=== PATIENT | male | born 1955 | race African-American/Black ===

== ENCOUNTER 2019-04-08 07:44 | Day surgery (SDC) | payer MEDICAID ==
[2019-04-08] MEDS ORDERED: PROPOFOL INJ 200 MG/20 ML VIAL IV ONE (07:59)
[2019-04-08 10:16] VITALS: BP 139/49
--- NOTE | 2019-04-08 10:22 | EKG REPORT ---
SEVERITY:- ABNORMAL ECG - ATRIAL-VENTRICULAR DUAL-PACED COMPLEXES : Confirmed by: Chang Laureano MD 08-Apr-2019 10:21:35
--- NOTE | 2019-04-08 12:06 | Operative Report ---
Operative Report DATE OF SURGERY: 04/08/19 Operative Report: The risks, benefits and alternatives of the procedure including the risk of bleeding, perforation requiring surgery have been explained to the patient in detail and informed consent has been obtained. Patient is taken back to the endoscopy suite and placed in the left, lateral decubital position. Timeout was called. Propofol medication is administered. Rectal examination is done which did not reveal any masses, tears or fissures. An Olympus videoscope was introduced into the patient's rectum. Scope was then carefully advanced all the way to the cecum. Cecum was identified by the usual anatomical landmarks including the ileocecal valve as well as the appendiceal office. Photodocumentation is obtained. Scope was then sequentially pulled back via the various segments of the colon including the ascending colon, hepatic flexure, transverse colon, splenic flexure, descending colon and into the rectosigmoid portions of the colon. Retroflexion maneuver is performed. PREOPERATIVE DIAGNOSIS: Colorectal cancer screening, change in bowel habits POSTOPERATIVE DIAGNOSIS: Mild right-sided colon inflammation status post biopsy. Internal hemorrhoids OPERATION: Colonoscopy with biopsy SURGEON: TURNER LOVE ANESTHESIA: LMAC TISSUE REMOVED OR ALTERED: As noted above. COMPLICATIONS: None. ESTIMATED BLOOD LOSS: None. INTRAOPERATIVE FINDINGS: As noted above. PROCEDURE: Patient tolerated the procedure well. No immediate postprocedure complications are noted. Patient is discharged in good condition. Discharge date 04/08/2019. Discharge diet: Regular. Discharge activity: Regular. 2 to 3-week follow-up to discuss findings. Patient is instructed to call the office or proceed to the emergency room should there be any further problems or questions. Wait on the pathology. If biopsies are negative consider a 10-year surveillance colonoscopy.
== END 2019-04-08 10:16 | disposition home or self-care (01) ==
LOC: END 07:44
PROVIDERS: ATTEND Internal Medicine Gastroenterology
DX: K52.9 Noninfective gastroenteritis and colitis, unspecified (principal); K64.8 Other hemorrhoids; I11.0 Hypertensive heart disease with heart failure; I50.22 Chronic systolic (congestive) heart failure; I73.9 Peripheral vascular disease, unspecified; I25.10 Atherosclerotic heart disease of native coronary artery without angina pectoris; I25.2 Old myocardial infarction
CPT/HCPCS: 45380; 88305 ×2; 93005; 93010; 00812; J2704; 812

== ENCOUNTER → 2019-04-11 | Outpatient (CLI) | payer MEDICAID ==
--- NOTE | 2019-04-11 13:35 | RADIOLOGY REPORT (SQ) ---
EXAM DESCRIPTION: U/S ABDOMEN COMPLETE W/DOPPLER COMPLETED DATE/TIME: 04/11/2019 10:58 am REASON FOR STUDY: R94.5 ABNORMAL RESULTS OF LIVER FUNCTION STUDIES R94.5 ABNORMAL RESULTS OF LIVER FUNCTION STUDIES COMPARISON: None. TECHNIQUE: Dynamic and static grayscale images acquired of the abdomen and recorded on PACS. Additio nal selected color Doppler and spectral images recorded. Note: Study does not meet criteria for complete doppler/duplex scan LIMITATIONS: None. FINDINGS: PANCREAS: Visualized portions of the pancreas are unremarkable. LIVER: No masses. Echotexture normal. LIVER VASCULATURE: Normal directional flow of the main portal vein and hepatic veins. GALLBLADDER: No stones. Normal wall thickness. No pericholecystic fluid. ULTRASOUND-DETECTED GUTIERREZ'S SIGN: Negative. INTRAHEPATIC DUCTS AND COMMON DUCT: CBD and intrahepatic ducts normal caliber. No filling defects. INFERIOR VENA CAVA: Normal flow. AORTA: No aneurysm. RIGHT KIDNEY: Normal size. Normal echogenicity. No solid or suspicious lesions. There are sever al cysts. The largest measures 2.7 x 2.0 x 3.2 cm. No hydronephrosis. No calcifications. LEFT KIDNEY: Normal size. Normal echogenicity. No solid or suspicious masses. No hydronephrosi s. No calcifications. SPLEEN: Normal size. No solid masses. PERITONEAL AND PLEURAL SPACES: No ascites or effusions. OTHER: No other significant finding. IMPRESSION: Right renal cysts. No other significant findings. TECHNICAL DOCUMENTATION: JOB ID: [id number] [employer]- All Rights Reserved Reading location - IP/workstation name: [email or web address]
== END ==
LOC: RAD 08:58 → MERGE 08:58
PROVIDERS: ATTEND Physician Assistant
DX: N28.1 Cyst of kidney, acquired (principal); R94.5 Abnormal results of liver function studies
CPT/HCPCS: 76700; 93976

== ENCOUNTER → 2019-06-10 | Day surgery (SDC) | payer MEDICAID ==
--- NOTE | 2019-06-10 16:09 | RADIOLOGY REPORT (SQ) ---
EXAM DESCRIPTION: ARTHRO SHOULDER INJECTION; FLUORO/NEEDLE PLACEMENT COMPLETED DATE/TIME: 06/10/2019 2:25 pm REASON FOR STUDY: M75.52 BURSITIS OF LEFT SHOULDER M75.52 BURSITIS OF LEFT SHOULDER COMPARISON: None. FLUOROSCOPY TIME: 22 seconds. 1 images saved to PACS. LIMITATIONS: None. PROCEDURE: Procedure, risks, benefits and alternative explained to patient who then gave written con sent. The left shoulder was marked and a time-out was called for correct marking verification. Post erior entry site marked using fluoroscopic guidance. Shoulder prepped and draped using sterile techn ique. Local anesthesia achieved using 1% lidocaine injection. 22 gauge spinal needle introduced into the joint space under direct fluoroscopic visualization. Non-ionic contrast instilled to confirm in tra-articular position. Additional dilute non-ionic contrast instilled. Needle removed and entry si te covered with sterile bandage. No immediate complications noted. TECHNIQUE: Digital images acquired during fluoroscopy and stored on PACS. Patient immediately take n to the CT suite for additional imaging. INJECTION LOCATION: Posterior left shoulder. CONTRAST TYPE AND AMOUNT: 10 mL dilute Omnipaque. IMPRESSION: SUCCESSFUL NEEDLE PLACEMENT AND INJECTION FOR LEFT SHOULDER CT ARTHROGRAM USING POSTERIO R APPROACH. COMMENT: Quality ID 145: Final reports for procedures using fluoroscopy that document radiation exp osure indices, or exposure time and number of fluorographic images (if radiation exposure indices are not available) TECHNICAL DOCUMENTATION: JOB ID: [id number] [employer] All Rights Reserved Reading location - IP/workstation name: [email or web address]
--- NOTE | 2019-06-10 20:42 | RADIOLOGY REPORT (SQ) ---
EXAM DESCRIPTION: CT LT UPPER EXTREMITY WITH COMPLETED DATE/TIME: 06/10/2019 1:04 pm REASON FOR STUDY: M75.52 BURSITIS OF LEFT SHOULDER M75.52 BURSITIS OF LEFT SHOULDER COMPARISON: None. TECHNIQUE: Axial imaging performed through the leftshoulder with reformatted oblique coronal and obl ique sagittal imaging windowed for bone and soft tissues. All CT scanners at this facility use dose modulation, iterative reconstruction, and/or weight based d osing when appropriate to reduce radiation dose to as low as reasonably achievable (ALARA). [facility]: Dose Right [facility]: CareDose [facility]: Dose Right [facility]: Teradose 4D [facility]: [employer] RADIATION DOSE: CT Rad equipment meets quality standard of care and radiation dose reduction techniq ues were employed. CTDIvol: 17.1 mGy. DLP: 481 mGy-cm. mGy. LIMITATIONS: None. FINDINGS: SOFT TISSUES: No lung lesions. No axillary adenopathy. Cardiomegaly. Pacer artifact. BONY ARCHITECTURE: No fracture or suspicious bone lesion. GLENOHUMERAL JOINT: Well distended with contrast. No focal chondral lesions are detected. ACROMION AND AC JOINT: Mild degenerative changes with slight dorsal overgrowth. No subacromial compr omise appreciated. ROTATOR CUFF: No evidence of overt cuff tear or muscular atrophy. GLENOID, LABRUM AND BICEPS: Labrum and long head biceps tendon look intact. OTHER: No other significant finding. IMPRESSION: 1. No suggestion of overt cuff tear. 2. Grossly intact labrum and biceps tendon. TECHNICAL DOCUMENTATION: JOB ID: [id number] Quality ID # [id number]: Final reports with documentation of one or more dose reduction techniques (e.g., Au tomated exposure control, adjustment of the mA and/or kV according to patient size, use of iterative reconstruction technique) 2010 [employer]- All Rights Reserved Reading location - IP/workstation name: [email or web address]
== END ==
LOC: RAD 12:01
PROVIDERS: ATTEND Orthopaedic Surgery
DX: M75.52 Bursitis of left shoulder (principal)
CPT/HCPCS: 23350; 77002

== ENCOUNTER 2019-08-20 05:50 | Emergency (ER) | payer MEDICAID ==
[2019-08-20] MEDS ORDERED: HYDROMORPHONE HCL INJ/PF 2 MG/ML AMPULE IM ONE (06:42)
--- NOTE | 2019-08-20 06:54 | ER Document Report ---
ED General - General Chief Complaint: Foot Pain Stated Complaint: PAIN IN LEFT FOOT Time Seen by Provider: 08/20/19 06:32 Primary Care Provider: AKIN NIELSEN DO [ACTIVE STAFF] - Follow up as needed TRAVEL OUTSIDE OF THE [place] IN LAST 30 DAYS: No - HPI Patient complains to provider of: left foot pain Notes: 63-year-old male presents with 10/10 left foot at the base of his left great toe. Denies any trauma to the foot. Denies fever chills cough. No obvious deformity. Patient was scheduled to see orthopedic surgeon this morning secondary to this pain and possible gout attacks. - Related Data Allergies/Adverse Reactions: lisinopril Adverse Reaction (Verified 08/20/19 05:56) Past Medical History - Social History Smoking Status: Former Smoker Chew tobacco use (# tins/day): No Frequency of alcohol use: None Drug Abuse: None Family History: None Patient has suicidal ideation: No Patient has homicidal ideation: No - Past Medical History Cardiac Medical History: Reports: Hx Congestive Heart Failure, Hx Coronary Artery Disease, Hx Heart Attack, Hx Hypercholesterolemia, Hx Hypertension, Hx Peripheral Vascular Disease Pulmonary Medical History: Denies: Hx Asthma, Hx Bronchitis, Hx COPD, Hx Pneumonia Neurological Medical History: Denies: Hx Cerebrovascular Accident, Hx Seizures Renal/ Medical History: Denies: Hx Peritoneal Dialysis Musculoskeletal Medical History: Reports Hx Arthritis Psychiatric Medical History: Reports: Hx Depression Past Surgical History: Reports: Hx Pacemaker - AICD Review of Systems - Review of Systems Notes: REVIEW OF SYSTEMS: CONSTITUTIONAL: -fevers, -chills EENT: -eye pain, -difficulty swallowing, -nasal congestion CARDIOVASCULAR: -chest pain, -syncope. RESPIRATORY: -cough, -SOB GASTROINTESTINAL: -abdominal pain, -nausea, -vomiting, -diarrhea GENITOURINARY: -dysuria, -hematuria MUSCULOSKELETAL: left foot pain SKIN: -rash or skin lesions. HEMATOLOGIC: -easy bruising or bleeding. LYMPHATIC: -swollen, enlarged glands. NEUROLOGICAL: -altered mental status or loss of consciousness, -headache, - neurologic symptoms PSYCHIATRIC: -anxiety, -depression. ALL OTHER SYSTEMS REVIEWED AND NEGATIVE. Physical Exam - Vital signs Vitals: Temp Pulse Resp BP Pulse Ox 97.1 F 58 L 26 H 127/63 H 100 08/20/19 05:55 08/20/19 05:55 08/20/19 05:55 08/20/19 05:55 08/20/19 05:55 - Notes Notes: PHYSICAL EXAMINATION: GENERAL: Well-appearing, well-nourished and in no acute distress. HEAD: Atraumatic, normocephalic. EYES: Pupils equal round and reactive to light, extraocular movements intact, sclera anicteric, conjunctiva are normal. ENT: nares patent, oropharynx clear without exudates. Moist mucous membranes. NECK: Normal range of motion, supple without lymphadenopathy LUNGS: Breath sounds clear to auscultation bilaterally and equal. No wheezes rales or rhonchi. HEART: Regular rate and rhythm without murmurs EXTREMITIES: warm at base of left great toe, very painful to palpation NEUROLOGICAL: Cranial nerves grossly intact. Normal speech, normal gait. Normal sensory and motor exams. PSYCH: Normal mood, normal affect. SKIN: Warm, Dry, normal turgor, no rashes or lesions noted. Course - Re-evaluation Re-evalutation: 08/20/19 06:54 Well-appearing 63-year-old male presents with a great deal of pain in his left foot indicative of possible gout. Will obtain imaging study and provide analgesia. 08/20/19 08:02 Merline study unremarkable. Patient given analgesia feeling markedly improved. W ill be discharged home with short course oral steroids follow-up orthopedics - Vital Signs Vital signs: Temp Pulse Resp BP Pulse Ox 97.1 F 58 L 26 H 127/63 H 100 08/20/19 05:55 08/20/19 05:55 08/20/19 05:55 08/20/19 05:55 08/20/19 05:55 Discharge - Discharge Clinical Impression: Gout Qualifiers: Gout site: foot Gout etiology: unspecified cause Chronicity: acute Laterality: left Qualified Code(s): M10.9 - Gout, unspecified Condition: Stable Disposition: HOME, SELF-CARE Instructions: Gout ([facility]) Prescriptions: Methylprednisolone [Medrol Dosepack (4 mg/Tab) 21 Tab/Dosepak] 4 mg PO ASDIR PRN #[id number] tab.ds.pk PRN Reason: Referrals: AKIN NIELSEN DO [ACTIVE STAFF] - Follow up as needed
--- NOTE | 2019-08-20 07:58 | RADIOLOGY REPORT (SQ) ---
Left foot three view on 08/20/2019 at 7:08 AM CLINICAL INDICATION: Left foot pain COMPARISON: None FINDINGS: There are no fractures. Visualized joints are well aligned. No bony abnormality is noted. IMPRESSION: No acute abnormality.
[2019-08-20 08:41] VITALS: BP 114/55
== END 2019-08-20 08:30 | disposition home or self-care (01) ==
LOC: ER 05:50
DX: M10.9 Gout, unspecified (principal); I25.10 Atherosclerotic heart disease of native coronary artery without angina pectoris; I10 Essential (primary) hypertension; Z87.891 Personal history of nicotine dependence
CPT/HCPCS: 99283; 96372; 73620; J1170

== ENCOUNTER 2020-04-21 21:10 | Emergency (ER) | payer MEDICAID ==
[2020-04-21] MEDS ORDERED: ACETAMINOPHEN 325 MG TABLET PO ONE (21:53)
--- NOTE | 2020-04-21 21:56 | ER Document Report ---
ED Medical Screen (RME) - General Chief Complaint: Fall Injury Stated Complaint: FALL/HEAD INJURY Time Seen by Provider: 04/21/20 21:47 Primary Care Provider: SUSSY CORTES PA-C [Primary Care Provider] - Follow up as needed Mode of Arrival: Wheelchair Information source: Patient, Friend Notes: HPI; 64-year-old male presents to the emergency room with significant other after sustaining a head injury earlier today. Patient states he lost his balance falling out of a chair and hitting his head on the floor. Patient denies any dizziness, chest pain, no shortness of breath or difficulty breathing. Friend states that happened around 4:30 PM they had dinner and then around 7:30 PM patient became confused and agitated and asked to go to the emergency room. Currently on any blood thinners. PE: Alert and oriented x3. Lungs: Clear to auscultation without rales, rhonchi, wheezes. Heart: Regular rate rhythm without murmurs, rubs, gallops. Patient is uncooperative with full examination of his head, face, and eyes. He does have tenderness to the right temporal region as well as the right cheek. I have greeted and performed a rapid initial assessment of this patient. A comprehensive ED assessment and evaluation of the patient, analysis of test results and completion of the medical decision making process will be conducted by additional ED providers. I have specifically instructed the patient or family members with the patient to immediately return to any nursing staff should anything change in the patient's condition or with their chief complaint. TRAVEL OUTSIDE OF THE [place] IN LAST 30 DAYS: No - Related Data Allergies/Adverse Reactions: lisinopril Adverse Reaction (Verified 04/21/20 21:46) Past Medical History - Past Medical History Cardiac Medical History: Reports: Hx Congestive Heart Failure, Hx Coronary Artery Disease, Hx Heart Attack, Hx Hypercholesterolemia, Hx Hypertension, Hx Peripheral Vascular Disease Pulmonary Medical History: Denies: Hx Asthma, Hx Bronchitis, Hx COPD, Hx Pneumonia Neurological Medical History: Denies: Hx Cerebrovascular Accident, Hx Seizures Renal/ Medical History: Denies: Hx Peritoneal Dialysis Musculoskeltal Medical History: Reports Hx Arthritis Psychiatric Medical History: Reports: Hx Depression Past Surgical History: Reports: Hx Pacemaker - AICD Physical Exam - Vital signs Vitals: Temp Pulse Resp BP Pulse Ox 98.4 F 50 L 16 133/66 H 98 04/21/20 21:16 04/21/20 21:16 04/21/20 21:16 04/21/20 21:16 04/21/20 21:16 Course - Vital Signs Vital signs: Temp Pulse Resp BP Pulse Ox 98.4 F 50 L 16 133/66 H 98 04/21/20 21:16 04/21/20 21:16 04/21/20 21:16 04/21/20 21:16 04/21/20 21:16 Doctor's Discharge - Discharge Referrals: SUSSY CORTES PA-C [Primary Care Provider] - Follow up as needed
--- NOTE | 2020-04-21 22:39 | RADIOLOGY REPORT (SQ) ---
CLINICAL HISTORY: head injury FALL FROM A CHAIR COMPARISON: None. 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 FINDINGS: There is no acute hemorrhage, mass effect or midline shift. Boyce-white differentiation is preserved. There is no hydrocephalus. There is no significant volume loss for age. The calvarium is intact. Orbits and globes are unremarkable. The paranasal sinuses are clear. Mastoid air cells are clear. IMPRESSION: No acute intracranial findings.
--- NOTE | 2020-04-21 22:39 | RADIOLOGY REPORT (SQ) ---
CLINICAL HISTORY: facial injury FALL FROM A CHAIR COMPARISON: None. 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 FINDINGS: There is no acute fracture. The paranasal sinuses are clear. Orbits and globes are unremarkable. Mastoid air cells are clear. Temporomandibular joints are intact. There are no significant soft tissue abnormalities. IMPRESSION: No post-traumatic findings.
--- NOTE | 2020-04-21 22:41 | RADIOLOGY REPORT (SQ) ---
CLINICAL HISTORY: FALL FROM A CHAIR COMPARISON: None. 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 FINDINGS: There is no acute fracture. Vertebral body heights are preserved. There is grade 1 anterolisthesis of C4 on C5. There is mild diffuse facet arthritis bilaterally. There is mild narrowing of the C5-6 disc with moderate narrowing at C6-7. Soft tissues are unremarkable. IMPRESSION: No acute fracture or subluxation.
--- NOTE | 2020-04-22 05:41 | ER Document Report ---
ED Head/Face/Scalp Injury - General Chief Complaint: Fall Stated Complaint: FALL/HEAD INJURY Time Seen by Provider: 04/21/20 21:47 Primary Care Provider: SUSSY CORTES PA-C [Primary Care Provider] - 04/24/20 Mode of Arrival: Wheelchair Notes: Patient is a 64-year-old male that comes to the emergency department for chief complaint of a head injury. Patient states he was changing a cord on a light fixture when he lost his balance on the ladder and fell several feet and hit his head on the floor on the right side of the head. Patient was not knocked out but he states that since that happened he has had intermittent headaches, trouble focusing, and worsening neck pain. He denies numbness in his arms or legs, incontinence, vomiting, visual changes. states that she first was not worried about him, he hit his head approximately 1630, she states that patient was complaining of a headache and he was having trouble answering her questions and seemed somewhat confused so she became concerned and brought him to the emergency department. He takes a baby aspirin daily but no other blood thinners. Past medical history of CAD, hypertension, hyperlipidemia. TRAVEL OUTSIDE OF THE [place] IN LAST 30 DAYS: No - Related Data Allergies/Adverse Reactions: lisinopril Adverse Reaction (Verified 04/21/20 21:46) Past Medical History - General Information source: Patient, Friend - Social History Smoking Status: Former Smoker Frequency of alcohol use: None Drug Abuse: None Lives with: Family Family History: None - Past Medical History Cardiac Medical History: Reports: Hx Congestive Heart Failure, Hx Coronary Artery Disease, Hx Heart Attack, Hx Hypercholesterolemia, Hx Hypertension, Hx Peripheral Vascular Disease Pulmonary Medical History: Denies: Hx Asthma, Hx Bronchitis, Hx COPD, Hx Pneumonia Neurological Medical History: Denies: Hx Cerebrovascular Accident, Hx Seizures Renal/ Medical History: Denies: Hx Peritoneal Dialysis Musculoskeletal Medical History: Reports Hx Arthritis Psychiatric Medical History: Reports: Hx Depression Past Surgical History: Reports: Hx Pacemaker - AICD Review of Systems - Review of Systems Constitutional: No symptoms reported EENT: No symptoms reported Cardiovascular: No symptoms reported Respiratory: No symptoms reported Gastrointestinal: No symptoms reported Genitourinary: No symptoms reported Male Genitourinary: No symptoms reported Musculoskeletal: See HPI Skin: No symptoms reported Hematologic/Lymphatic: No symptoms reported Neurological/Psychological: See HPI Physical Exam - Vital signs Vitals: Temp Pulse Resp BP Pulse Ox 98.4 F 50 L 16 133/66 H 98 04/21/20 21:16 04/21/20 21:16 04/21/20 21:16 04/21/20 21:16 04/21/20 21:16 - Notes Notes: GENERAL: Alert, interactive, moves stiffly and winces frequently with movement. HEAD: Normocephalic, atraumatic. EYES: Pupils equal, round, and reactive to light. Extraocular movements intact. ENT: Oral mucosa moist, tongue midline. Oropharynx unremarkable. Airway patent. Nares patent, sinuses non-tender, ear canals unremarkable, TM's intact. NECK: Full range of motion. Supple. Trachea midline. No lymphadenopathy. LUNGS: Clear to auscultation bilaterally, no wheezes, rales, or rhonchi. No respiratory distress. Non-tender chest wall. HEART: Regular rate and rhythm. No murmur ABDOMEN: Soft, non-tender. Non-distended. Bowel sounds present in all 4 quadrants. GENITOURINARY: Deferred EXTREMITIES: Moves all 4 extremities spontaneously. No edema, normal radial and dorsalis pedis pulses bilaterally. No cyanosis. BACK: Generalized tenderness over the cervical region although no overt specific tenderness or signs of trauma over the midline. Difficulty performing lateral range of motion, significant tenderness over the paracervical muscles noted. Remaining back exam is intact. Moves all extremities with full range of motion. Normal distal neurovascular exam. NEUROLOGICAL: Alert and oriented x3. Normal speech. Cranial nerves II through XII grossly intact. Strength 5/5 in all extremities. PSYCH: Normal affect, normal mood. SKIN: Warm, dry, normal turgor. No rashes or lesions noted. Course - Re-evaluation Re-evalutation: On my evaluation patient is alert and oriented. He has mild nystagmus, he answers some questions slowly but he answers all of them correctly. He states he has a mild headache now and he is trying to get stiffness in his neck after the injury which was hours ago, he has no other complaints. He has no neurological deficits. CT of the head, neck, face reviewed and unremarkable. Based on his overall evaluation I suspect patient had a concussion and is having postconcussive symptoms. Low suspicion of any acute emergent intracranial abnormality from the injury. Discussed details with patient and family. Patient already having trouble getting comfortable because of his neck, they are requesting pain medication, he was given a small amount with precautions along with muscle relaxers. 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 Discussed monitoring, discussed return precautions. Patient and state appreciation and agreement. - Vital Signs Vital signs: Temp Pulse Resp BP Pulse Ox 98.8 F 78 16 154/74 H 98 04/22/20 05:54 04/22/20 05:54 04/22/20 05:54 04/22/20 05:54 04/22/20 05:54 Discharge - Discharge Clinical Impression: Neck pain Head injury Qualifiers: Encounter type: initial encounter Qualified Code(s): S09.90XA - Unspecified injury of head, initial encounter Condition: Stable Disposition: HOME, SELF-CARE Additional Instructions: Your imaging does not show fractures or concerning findings. Your evaluation is consistent with a concussion and strain of the paracervical and trapezius muscles causing muscle spasms. I recommend the muscle x-rays prescribed, heat and gentle massage to the area, gentle stretches. Only take the stronger pain medication if needed, take Tylenol otherwise. If you do take the stronger medication, consider an OTC stool softener such as Miralax to avoid constipation. Please follow head precautions listed below, see postconcussive syndrome listed below, follow-up close with primary care, return for any concerning symptoms. Head Injury Precautions At this point, there is no evidence that your head injury is serious. Observation is necessary, however. Limit activity for the first 24 hours. During the first 24 hours, check to see approximately every two to three hours that the patient is easily arousable, responds normally, and can perform common tasks such as walking without difficulty. Contact your doctor or go to the hospital if any of the following things occur: Persistent vomiting, difficulty in arousing the patient, worsening or continued headache, or failure to improve as expected. Head injuries can cause symptoms that persist for a few days or even a few weeks. Post-Concussion Syndrome Post-concussion syndrome often follows a mild head injury. Dizziness, mild nausea, mild headache, trouble concentrating, and a general sense of "not being right" may persist for a week or two. This is a frequent complication of concussion. However, if the symptoms worsen, or new symptoms develop, you should be re-examined by the physician. There is no specific cure for post-concussion syndrome. You can take mild pain medication such as ibuprofen or acetaminophen. While you should not drive if you are dizzy, you can get back to your regular activities as quickly as the symptoms will allow. And while vigorous exercise may worsen the headache, mild physical activity often is helpful. Sitting and thinking about your symptoms will worsen them. If difficulties continue, you may need referral for special therapy to help you regain full mental function. Call the physician if you are worsening, or if symptoms are still present in one week. Report any new symptoms immediately. Prescriptions: Hydrocodone/Acetaminophen [[place] 5-325 mg Tablet] 1 - 2 tab PO Q6H PRN #8 tablet PRN Reason: Methocarbamol [Robaxin 500 mg Tablet] 500 mg PO QID PRN #20 tablet PRN Reason: Referrals: SUSSY CORTES PA-C [Primary Care Provider] - 04/24/20
[2020-04-22] MEDS ORDERED: HYDROCODONE/ACETAMINOPHEN 5-325 MG (6 TAB/ER DISP) PO PRN (05:44)
[2020-04-22 05:58] VITALS: BP 154/74
--- OUTSIDE RECORDS SUMMARY | 2020-04-23 17:50 | XMS REPORT ---
:1955 Author Organization [facility] Address [address] [place] [address] Care Team Providers Name Role Phone FELI CORTES Primary Care Physician Unavailable JULIENNE Attending Clinician Unavailable Ness Attending Clinician Unavailable MADAI SHRESTHA Attending Clinician Unavailable Qiana DICKERSON Attending Clinician Unavailable IVETTE KLINE Attending Clinician Unavailable ZHANE BELL Attending Clinician Unavailable PROVIDER, IN SYSTEM Attending Clinician Unavailable JAYCEE MAN Attending Clinician Unavailable SOMMER Attending Clinician Unavailable MADAI SHRESTHA Admitting Clinician Unavailable ZHANE BELL Admitting Clinician Unavailable Allergies, Adverse Reactions, Alerts Allergy Allergy Status Severity Reaction(s) Onset Inactive Treating C omments Name Type Date Date Clinician LISINOPRIL Drug Active Unknown 2020-0 allergy 3-05 00:00: 00 SPIRONOLAC Drug Active Unknown 2020-0 TONE allergy 3-05 00:00: 00 Spironolac Propensity Active Moderate 2020-0 G ynecomast tone to adverse 2-13 ia reactions 00:00: 00 LISINOPRIL Drug Inactive Unknown 2019-0 allergy 8-08 00:00: 00 Lisinopril Propensity Inactive Other (See 2017-0 Cough to adverse Comments) 1-05 reactions 00:00: 00 Lisinopril Drug Active Other (See 20170 Co ugh Intoleranc Comments) 1-05 e 00:00: 00 Lisinopril Allergy to Active substance Spironolac Allergy to Active tone substance Medications Ordered Filled Start Stop Current Ordering Indication Dosage Frequency Signature Comments Components Medication Medication Date Date Medication? Clinician (SIG) Name Name oxyCODONE-a 2020- 2020- No 1{tbl} Take 1 Take 1 cetaminophe 0-20 10-20 tablet by tabpeyman et by n 00:00: 00:00 mouth mouth (PERCOCET) 00 :00 every six every six 5-325 mg (6) hours (6) marco antonio rs per tablet as needed as ne eded for pain for pain for up to for up to 5 days. 5 days. allopurinoL 2019-06 No 300mg Take 1 Take 1 (ZYLOPRIM) 0-15 tablet tablet 300 MG 00:00: (300 mg (300 mg tablet 00 total) by total) by mouth mouth daily. daily. MITIGARE 2019-06 No .6mg Take 1 Take 1 0.6 mg cap 0-15 capsule capsule capsule 00:00: (0.6 mg (0.6 mg 00 total) by total) by mouth two mouth two (2) times (2) times a day as a day as needed needed (start (start taking as taking as soon as soon as you you experience experienc a gout e a gout flare; flare; stop when stop when pain pain resolves). resolves) . colchicine 2019-06 2020 No .6mg Take 1 Take 1 (COLCRYS) 0-15 10-15 tablet tablet 0.6 mg 00:00: 00:00 (0.6 mg (0.6 mg tablet 00 :00 total) by total) by mouth two mouth two (2) times (2) times a day as a day as needed needed (start (start taking as taking as soon as soon as you you experience experienc a gout e a gout flare; flare; stop when stop when pain pain resolves). resolves) . nitroglycer No .4mg Place [address] 1 in 8-11 tablet tablet (NITROSTAT) 00:00: (0.4 mg (0.4 mg 0.4 MG SL 00 total) total) tablet under the under the tongue tongue every five every (5) five (5) minutes as minutes needed for as needed chest for chest pain. pain. eplerenone No 25mg Take 1 Take 1 (INSPRA) 25 6-05 tablet (25 tab let MG tablet 00:00: mg total) (25 m g 00 by mouth total) by daily. mouth daily. torsemide 2020- No 20mg Take 1 Take 1 (DEMADEX) 6-05 06-05 tablet (20 table t 20 MG 00:00: 23:59 mg total) (20 mg tablet 00 :00 by mouth total) by daily. mouth daily. metoprolol 2020- No 100mg Take 1 Take 1 succinate 11-14-05 tablet tablet (TOPROL-XL) 00:00: 23:59 (100 mg (100 mg 100 MG 24 00 :00 total) by total) by hr tablet mouth mouth daily. daily. losartan 2020- No 50mg Take 1 Take 1 (COZAAR) 50 11-14-05 tablet (50 tab let MG tablet 00:00: 23:59 mg total) (50 m g 00 :00 by mouth total) by daily. mouth daily. atorvastati 2020- No 40mg Take 1 Take 1 n (LIPITOR) 11-14 tablet (40 tab let 40 MG 00:00: 23:59 mg total) (40 mg tablet 00 :00 by mouth total) by daily. mouth daily. guaiFENesin 2019- No 600mg Take 1 Take 1 (MUCINEX) 11-14 tablet tablet 600 mg 12 00:00: 23:59 (600 mg (600 mg hr tablet 00 :00 total) by total) by mouth Two mouth Two (2) times (2) times a day. a day. eplerenone 2019- No 25mg Take 1 Take 1 (INSPRA) 25 07-25- tablet (25 tab let MG tablet 00:00: 00:00 mg total) (25 m g 00 :00 by mouth total) by daily. mouth daily. spironolact 2019- No 25mg Q1D spironolac one 25 mg 01-25-14 tone 25 mg tablet Take 00:00: 00:00 tablet 25 mg every 00 :00 Take 25 mg day by oral every day route. by oral route. spironolact 2019- No 25mg Take 1 Take 1 one 01-25 02-13 tablet (25 tablet (ALDACTONE) 00:00: 00:00 mg total) (25 mg 25 MG 00 :00 by mouth total) by tablet daily. mouth daily. metoprolol 2019- No 100mg metoprolol succinate 01-23-14 succinate ER 100 mg 00:00: 00:00 ER 100 mg tablet,exte 00 :00 tablet,ext nded ended release 24 release 24 hr 100 mg hr 100 mg by oral by oral route. route. metoprolol 2019- No 100mg Take 1 Take 1 succinate 01-23 06-05 tablet tablet (TOPROL-XL) 00:00: 00:00 (100 mg (100 mg 100 MG 24 00 :00 total) by total) by hr tablet mouth mouth daily. daily. isosorbide 2019- No 30mg Take 1 Take 1 mononitrate 10-16- tablet (30 tab let (IMDUR) 30 00:00: 00:00 mg total) (30 mg MG 24 hr 00 :00 by mouth total) b y tablet daily. mouth daily. atorvastati No 40mg Take 1 Take 1 n (LIPITOR) 4-12 tablet (40 tab let 40 MG 00:00: mg total) (40 mg tablet 00 by mouth total) by daily. mouth daily. atorvastati No 40mg Take 1 Take 1 n (LIPITOR) 4-12 tablet (40 tab let 40 MG 00:00: mg total) (40 mg tablet 00 by mouth total) by daily. mouth daily. nitroglycer No .4mg nitroglyce in 0.4 mg 09-21 rin 0.4 mg sublingual 00:00: sublingual tablet [address] 0.4 mg by mg by sublingual sublingual route as route as needed. needed. nitroglycer 2020- No .4mg Place [address] 1 in 09-21 08-11 tablet tablet (NITROSTAT) 00:00: 00:00 (0.4 mg (0.4 mg 0.4 MG SL 00 :00 total) total) tablet under the under the tongue tongue every five every (5) five (5) minutes as minutes needed for as needed chest for chest pain. pain. losartan 2019- No 50mg Take 1 Take 1 (COZAAR) 50 09-21-05 tablet (50 tab let MG tablet 00:00: 00:00 mg total) (50 m g 00 :00 by mouth total) by daily. mouth daily. atorvastati 2020- No TAKE 1 TAKE 1 n (LIPITOR) 09-21-05 TABLET (40 TAB LET 40 MG 00:00: 00:00 MG TOTAL) (40 MG tablet 00 :00 BY MOUTH TOTAL) BY DAILY. MOUTH DAILY. torsemide TAKE ONE TAKE O NE (DEMADEX) 09-21 TABLET TABLET 20 MG 00:00: 00:00 DAILY - DAILY - tablet 00 :00 TAKE AN TAKE AN ADDITIONAL ADDITIONA DOSE FOR L DOSE WEIGHT FOR GAIN WEIGHT GAIN atorvastati atorvastat n 40 mg 09-21 in 40 mg tablet 1 00:00: 00:00 tablet 1 tablet po 00 :00 tablet po qd qd losartan 50 50mg losartan mg tablet 09-21 50 mg 50 mg by 00:00: 00:00 tablet 50 oral route. 00 :00 mg by oral route. torsemide torsemide 20 mg 09-21 20 mg tablet 1 00:00: 00:00 tablet 1 tablet po 00 :00 tablet po qd qd metoprolol 75mg Take 1.5 Take 1.5 succinate 09-21 tablets tablets (TOPROL-XL) 00:00: 23:59 (75 mg (75 mg 50 MG 24 hr 00 :00 total) by tota l) by tablet mouth mouth daily. daily. torsemide 20mg Take 1 Take 1 (DEMADEX) 09-21 tablet (20 table t 20 MG 00:00: 23:59 mg total) (20 mg tablet 00 :00 by mouth total) by daily. mouth Take an daily. additional Take an dose for additiona weight l dose gain. for weight gain. furosemide 40mg Take 1 Take 1 (LASIX) 40 09-21 tablet (40 tabl et MG tablet 00:00: 00:00 mg total) (40 m g 00 :00 by mouth total) by daily. mouth Take an daily. additional Take an 40mg as additiona needed for l 40mg as weight needed gain for weight gain metoprolol TAKE 1 & TAKE 1 & succinate 09-21 1/2 1/2 (TOPROL-XL) 00:00: 00:00 TABLETS TABLE TS 50 MG 24 hr 00 :00 (75MG) BY (75M G) BY tablet MOUTH ONCE MOUTH DAILY ONCE DAILY isosorbide 2019-0 2019- No 30mg Take 1 Take 1 mononitrate 09-21 05-07 tablet (30 tab let (IMDUR) 30 00:00: 00:00 mg total) (30 mg MG 24 hr 00 :00 by mouth total) b y tablet daily. mouth daily. atorvastati 2018- No 40mg Take 40 mg Ta ke 40 n (LIPITOR) 09-2011 by mouth mg by 40 MG 11:29: 00:00 nightly. mouth tablet 25 :00 nightly. isosorbide 2018- No 30mg Take 30 mg Rohan e 30 mononitrate 09-2011 by mouth mg by (IMDUR) 30 11:29: 00:00 daily. mouth MG 24 hr 25 :00 daily. tablet metoprolol No 50mg Take 50 mg Rohan e 50 succinate 09-20 by mouth mg by (TOPROL-XL) 11:29: 00:00 daily. mouth 50 MG 24 hr 25 :00 daily. tablet latanoprost 2019- No 1[drp] Apply 1 Appl y 1 , PF, 0.005 09-20 drop to drop t o % Drop 10:49: 00:00 eye. Left eye. Lef t 58 :00 eye eye guaiFENesin No 600mg Take 600 Take 600 (MUCINEX) 4-11 mg by mg by 600 mg 12 10:48: mouth mouth hr tablet 53 nightly. nightly . atorvastati 2018- No 40mg Take 1 Take 1 n (LIPITOR) 09-20 tablet (40 tab let 40 MG 00:00: 00:00 mg total) (40 mg tablet 00 :00 by mouth total) by daily. mouth daily. isosorbide 2018- No 30mg Take 1 Take 1 mononitrate 09-20-12 tablet (30 tab let (IMDUR) 30 00:00: 00:00 mg total) (30 mg MG 24 hr 00 :00 by mouth total) b y tablet daily. mouth daily. losartan 2018- No 50mg Take 1 Take 1 (COZAAR) 50 09-20-12 tablet (50 tab let MG tablet 00:00: 00:00 mg total) (50 m g 00 :00 by mouth total) by daily. mouth daily. metoprolol No 75mg Take 1.5 Take 1.5 succinate 09-20 tablets tablets (TOPROL-XL) 00:00: 00:00 (75 mg (75 mg 50 MG 24 hr 00 :00 total) by tota l) by tablet mouth mouth daily. daily. torsemide 2018- No 20mg Take 1 Take 1 (DEMADEX) 09-20 tablet (20 table t 20 MG 00:00: 00:00 mg total) (20 mg tablet 00 :00 by mouth total) by daily. mouth Take an daily. additional Take an dose for additiona weight l dose gain. for weight gain. nitroglycer 2018- No .4mg Place [address] 1 in 09-20 tablet tablet (NITROSTAT) 00:00: 00:00 (0.4 mg (0.4 mg 0.4 MG SL 00 :00 total) total) tablet under the under the tongue tongue every five every (5) five (5) minutes as minutes needed for as needed chest for chest pain. pain. hydrALAZINE 2017-06 No 25MG Take 25 mg Ta ke 25 (APRESOLINE 06-11 by mouth mg by ) 25 MG 15:59: 00:00 every mouth tablet 37 :00 eight (8) every hours. eight (8) hours. isosorbide 2017-06- No 60MG Take 60 mg Rohan e 60 mononitrate 06-11 by mouth mg by (IMDUR) 60 15:59: 00:00 daily. mouth MG 24 hr 37 :00 daily. tablet metoprolol 2017-06 No 50MG Take 50 mg Rohan e 50 succinate 06-11 by mouth mg by (TOPROL-XL) 15:59: 00:00 daily. mouth 50 MG 24 hr 37 :00 daily. tablet torsemide 2017-06- No 40mg Take 2 Take 2 (DEMADEX) 09-20 tablets tablets 20 MG 00:00: 00:00 (40 mg (40 mg tablet 00 :00 total) by total) by mouth mouth daily. daily. atorvastati 2017-06 No 40MG Take 40 mg Ta ke 40 n (LIPITOR) 2-29 by mouth mg by 40 MG 14:30: nightly. mouth tablet 49 nightly. acetaminoph 2017-06 No 650mg Take 650 Take 650 en 2-29 mg by mg by (TYLENOL) 14:30: mouth mouth 325 MG 49 every six every six tablet (6) hours (6) hours as needed as needed for pain. for pain. cyclobenzap 2017-06 No 5mg Take 5 mg Rohan e 5 mg rine 2-29 by mouth by mouth (FLEXERIL) 14:30: every every 5 MG tablet 49 eight (8) eigh t (8) hours as hours as needed for needed muscle for spasms. muscle spasms. guaiFENesin 2017-06- No 600mg Take 600 Take 600 (MUCINEX) 06-05 mg by mg by 600 mg 12 14:30: 00:00 mouth Two mouth Two hr tablet 49 :00 (2) times (2) ti mes a day. a day. docusate 2017-06- No 100mg Take 100 Take 10 0 sodium 02-13 mg by mg by (COLACE) 14:30: 00:00 mouth two mouth two 100 MG 49 :00 (2) times (2) times capsule a day as a day as needed for needed constipati for on. constipat ion. calcium 2017-06- No 1250mg Take 1,250 Take polycarboph 02-13 mg by 1,250 mg il 14:30: 00:00 mouth Two by mouth (FIBERCON) 49 :00 (2) times Two ( 2) 625 mg a day. times a tablet day. losartan 2017-06- No 50mg Take 50 mg Take 50 (COZAAR) 50 04-11 by mouth mg by MG tablet 14:30: 00:00 daily. mouth 49 :00 daily. nitroglycer 2017-06- No .4mg Place 0.4 Felice ce 0.4 in 04-11 mg under mg under (NITROSTAT) 14:30: 00:00 the tongue th e 0.4 MG SL 49 :00 every five tongu e tablet (5) every minutes as five (5) needed for minutes chest as needed pain. for chest pain. GUAIFENESIN 2017-06 No 600mg Take 600 Take 600 ORAL 2-17 mg by mg by 00:00: mouth mouth 00 nightly as nightly needed. as needed. spironolact 2017- No 25MG Take 25 mg Ta ke 25 one 12-22 by mouth mg by (ALDACTONE) 09:29: 00:00 daily. mouth 25 MG 47 :00 daily. tablet latanoprost 2017- No 1[drp] Administer A dministe (XALATAN) 12-22 1 drop to r 1 dr op 0.005 % 08:42: 00:00 both eyes to both ophthalmic 18 :00 nightly. eyes solution nightly. triamcinolo 2017- No 2{spray 2 sprays 2 sprays ne 12-22 } into each into each (NASACORT) 08:42: 00:00 nostril nostri l 55 mcg 18 :00 daily. daily. nasal inhaler oxyCODONE-a 2017- No 2{tbl} Take 2 Take 2 cetaminophe 12-12 07-08 tablets by tab lets n 00:00: 23:59 mouth by mouth (PERCOCET) 00 :00 every six every six 5-325 mg (6) hours (6) marco antonio rs per tablet as needed. as for up to needed. 5 days for up to 5 days losartan No 100MG Take 100 Take 10 0 (COZAAR) 5-25 mg by mg by 100 MG 08:14: mouth mouth tablet 46 daily. daily. amLODIPine 2017- No 2.5MG Take 2.5 Take 2.5 (NORVASC) 5 5-25 12-31 mg by mg by MG tablet 08:14: 00:00 mouth mouth 46 :00 daily. daily. isosorbide 2017- No 30MG Take 30 mg Rohan e 30 dinitrate -05 06-29 by mouth mg by (ISORDIL) 08:14: 00:00 daily at mouth 30 MG 46 :00 0600. daily at tablet 0600. torsemide 2017- No 40MG Take 2 Take 2 (DEMADEX) 5-25 12-31 tablets tablets 20 MG 00:00: 00:00 (40 mg (40 mg tablet 00 :00 total) by total) by mouth Two mouth Two (2) times (2) times a day. a day. hydrALAZINE 2018- No 10MG Take 1 Take 1 (APRESOLINE 5-25 06-09 tablet (10 tab let ) 10 MG 00:00: 00:00 mg total) (10 mg tablet 00 :00 by mouth total) by Three (3) mouth times a Three (3) day. times a day. aspirin No 81mg Take 81 mg Take 8 1 (ECOTRIN) 1-05 by mouth mg by 81 MG 09:05: daily. mouth tablet 31 daily. albuterol No 2{puff} Inhale 2 Inha le 2 (PROVENTIL 1-05 puffs puffs HFA;VENTOLI 09:05: every six river ry six N HFA) 90 31 (6) hours (6) ho urs mcg/actuati as needed as n eeded on inhaler for for wheezing. wheezing. acetaminoph No 650MG Take 650 Take 650 en 1-05 mg by mg by (TYLENOL) 09:05: mouth mouth 650 MG CR 31 every every tablet eight (8) eight (8) hours as hours as needed for needed pain. for pain. timolol 2018- No 1[drp] Administer Admin iste (TIMOPTIC) 06-16 1 drop r 1 drop 0.5 % 09:05: 00:00 into the into the ophthalmic 31 :00 left eye left e ye solution Two (2) Two (2) times a times a day. day. albuterol 2018- No 2{puff} Inhale 2 Inha le 2 (PROVENTIL 1-05 12-29 puffs puffs HFA;VENTOLI 09:05: 00:00 every six river ry six N HFA) 90 31 :00 (6) hours (6) ho urs mcg/actuati as needed as n eeded on inhaler for for wheezing. wheezing. ibuprofen No 400MG Q6H Take 400 Take 4 00 (ADVIL,MOTR 5-02 mg by mg by IN) 400 MG 09:01: mouth mouth tablet 15 every six every six (6) hours (6) hours as needed as needed for pain. for pain. ibuprofen No 400MG Q6H Take 400 Take 4 00 (ADVIL,MOTR 5-02 mg by mg by IN) 400 MG 09:01: mouth mouth tablet 15 every six every six (6) hours (6) hours as needed as needed for pain. for pain. ibuprofen 0 No 400MG Q6H Take 400 Take 4 00 (ADVIL,MOTR 5-02 mg by mg by IN) 400 MG 09:01: mouth mouth tablet 15 every six every six (6) hours (6) hours as needed as needed for pain. for pain. ibuprofen 0 No 400MG Q6H Take 400 Take 4 00 (ADVIL,MOTR 5-02 mg by mg by IN) 400 MG 09:01: mouth mouth tablet 15 every six every six (6) hours (6) hours as needed as needed for pain. for pain. ibuprofen 2015- 2018- No 400MG Q6H Take 400 Take 4 00 (ADVIL,MOTR 5-02 12-29 mg by mg by IN) 400 MG 09:01: 00:00 mouth mouth tablet 15 :00 every six every six (6) hours (6) hours as needed as needed for pain. for pain. ATORVASTATI 0 No Take by Take by N CALCIUM 5-02 mouth. mouth. (LIPITOR 09:01: ORAL) metoprolol 2015-0 No 25MG Take 25 mg Rohan e 25 tartrate 5-02 by mouth mg by (LOPRESSOR) 09:01: Two (2) mouth Two 25 MG 02 times a (2) times tablet day. a day. ATORVASTATI 0 No Take by Take by N CALCIUM 5-02 mouth. mouth. (LIPITOR 09:01: ORAL) ATORVASTATI 2015-0 No Take by Take by N CALCIUM 5-02 mouth. mouth. (LIPITOR 09:01: ORAL) 02 metoprolol 2015-0 No 25MG Take 25 mg Rohan e 25 tartrate 5-02 by mouth mg by (LOPRESSOR) 09:01: Two (2) mouth Two 25 MG 02 times a (2) times tablet day. a day. ATORVASTATI 2015-0 No Take by Take by N CALCIUM 5-02 mouth. mouth. (LIPITOR 09:01: ORAL) 02 metoprolol 2016-0 No 25MG Take 25 mg Rohan e 25 tartrate 5-02 by mouth mg by (LOPRESSOR) 09:01: Two (2) mouth Two 25 MG 02 times a (2) times tablet day. a day. ATORVASTATI No Take by Take by N CALCIUM 5-02 mouth. mouth. (LIPITOR 09:01: ORAL) metoprolol No 25MG Take 25 mg Rohan e 25 tartrate 5-02 by mouth mg by (LOPRESSOR) 09:01: Two (2) mouth Two 25 MG 02 times a (2) times tablet day. a day. ATORVASTATI No 40MG Take 40 mg Ta ke 40 N CALCIUM 5-02 by mouth. mg by (LIPITOR 09:01: mouth. ORAL) metoprolol 2018- No 25MG Take 25 mg Rohan e 25 tartrate 5-02 12-29 by mouth mg by (LOPRESSOR) 09:01: 00:00 Two (2) mouth Two 25 MG 02 :00 times a (2) times tablet day. a day. indomethaci No 1capsul Q1D indomethac n ER 75 mg e(s) in ER 75 capsule,ext mg ended capsule,ex release tended TAKE ONE release CAPSULE BY TAKE ONE MOUTH EVERY CAPSULE BY DAY MOUTH EVERY DAY eplerenone No 1 BID eplerenone 25 mg 25 mg tablet Take tablet 1 tablet Take 1 twice a day tablet by oral twice a route. day by oral route. meloxicam No 1 BID meloxicam 7.5 mg 7.5 mg tablet Take tablet 1 tablet Take 1 twice a day tablet by oral twice a route as day by needed. oral route as needed. metoprolol No 1 Q1D metoprolol succinate succinate ER 100 mg ER 100 mg tablet,exte tablet,ext nded ended release 24 release 24 hr Take 1 hr Take 1 tablet tablet every day every day by oral by oral route. route. indomethaci No 3capsul Q1D indomethac n 25 mg e(s) in 25 mg capsule capsule Take 3 Take 3 capsules capsules every day every day by oral by oral route as route as directed directed for 10 for 10 days. days. indomethaci No 25mg Take 25 mg Rohan e 25 n (INDOCIN) by mouth 2 mg by 25 MG (two) mouth 2 capsule times a (two) day with times a meals. day with meals. aspirin 81 No 81mg Q1D aspirin 81 mg mg tablet,carrie tablet,del yed release ayed 81 mg by release 81 oral route. mg by oral route. atorvastati No 1 Q1D atorvastat n 40 mg in 40 mg tablet Take tablet 1 tablet Take 1 every day tablet by oral every day route. by oral route. isosorbide No 1 Q1D isosorbide dinitrate dinitrate 30 mg 30 mg tablet Take tablet 1 tablet Take 1 every day tablet by oral every day route. by oral route. losartan 50 No 1 Q1D losartan mg tablet 50 mg Take 1 tablet tablet Take 1 every day tablet by oral every day route. by oral route. nitroglycer No 1 nitroglyce in 0.4 mg rin 0.4 mg sublingual sublingual tablet tablet Place [address] 1 tablet by tablet by sublingual sublingual route as route as directed. directed. torsemide No 1 Q1D torsemide 20 mg 20 mg tablet Take tablet 1 tablet Take 1 every day tablet by oral every day route. by oral route. calcium No 1250mg Q1D calcium polycarboph polycarbop il 625 mg hil 625 mg tablet Take tablet 1250 mg Take 1250 every day mg every by oral day by route. oral route. Mucinex 600 No 600mg BID Mucinex mg tablet, 600 mg extended tablet, release extended Take 600 mg release twice a day Take 600 by oral mg twice a route. day by oral route. allopurinoL 2020- No 100mg Take 100 Take 100 (ZYLOPRIM) 10-15 mg by mg by 100 MG 00:00 mouth mouth tablet :00 daily. daily. 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 00:00: and and 00 diastolic diastolic heart heart failure failure Gout Gout [id number] Active 2020-03-30 3-10 10:54:03 00:00: 00 Continuous Continuous Problem Active positive Positive 1-10 airway Airway 00:00: pressure Pressure 00 ventilation Ventilation treatment Treatment Benign Benign Problem Active prostatic Prostatic 8-22 hyperplasia Hyperplasia 00:00: 00 Enlarged Enlarged [id number] Active 2019-01-31 prostate prostate 8 14:12:19 00:00: 00 Hypercholes Hypercholes Problem Active terolemia terolemia 816 00:00: 00 Hypertensiv Hypertensiv Problem Active e disorder e Disorder 816 00:00: 00 Myocardial Myocardial Problem Active infarction Infarction 816 00:00: 00 Sleep apnea Sleep Apnea Problem Inactiv e 8-16 00:00: 00 Subacromial Subacromial Problem Active bursitis of Bursitis of 8-16 left Left 00:00: shoulder Shoulder 00 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 00:00: 00 Shoulder Shoulder Problem Active joint pain Joint Pain 814 00:00: 00 Sleep apnea Sleep Apnea Problem Active 01-23 00:00: 00 Chronic Chronic [id number] Active 2019-01-23 left left 814 14:25:18 shoulder shoulder 00:00: pain pain 00 Erectile Erectile [id number] Inactiv 2019-01-23 dysfunction dysfunction e 8-14 14:25:18 00:00: 00 Erectile Erectile [id number] Active 2019-01-23 dysfunction dysfunction 8-14 14:25:18 00:00: 00 Automatic Automatic Problem Active implantable Implantable -11 cardiac Cardiac 00:00: defibrillat Defibrillat 00 or in situ or in Situ Biventricul Biventricul [id number] Active 2018-09-20 ar ICD ar ICD 4-11 11:22:14 (implantabl (implantabl 00:00: e e 00 cardioverte cardioverte r-defibrill r-defibrill ator) in ator) in place place Primary Primary Problem Active 2017-06 cardiomyopa Cardiomyopa 2-29 thy thy 00:00: 00 Systolic Systolic Problem Active 2017-06 heart Heart 2-29 failure Failure 00:00: 00 Systolic Systolic Condition Inactiv 2017-062018-06-09 congestive congestive e 15:35:51 heart heart 00:00: failure failure 00 Cardiomyopa Cardiomyopa Condition Active 2017-062018-06-09 thy, thy, 15:36:25 nonischemic nonischemic 00:00: 00 Systolic Systolic [id number] Active 2017-062018-06-09 congestive congestive 15:35:51 heart heart 00:00: failure failure 00 Abnormal Abnormal Condition Inactiv 2017-11-13 [place]: EKG EKG e 11-13 08:19:37 Added 00:00: automati c 00 ally fro m request for surgery [id number] Atrial Atrial Problem Active flutter Flutter 11-08 00:00: 00 Atypical Atypical Condition Active 2017-11-08 [place]: atrial atrial 11-08 15:57:15 Added flutter flutter 00:00: automati c 00 allluan fro m request for surgery [id number] Hyperlipide Hyperlipide Problem Active tanya tanya Essential Essential Problem Active hypertensio Hypertensio n n Pulmonary Pulmonary Problem Active embolism Embolism Chest pain Chest pain Condition Resolve 2017-062019-01-31 2018-06-09 d 00:00:00 15:36:34 00:00: 00 AICD lead AICD lead Condition Resolve 2017-062019-01-31 2018-03-27 Overview: malfunction malfunction d 0-16 00:00:00 13:59:14 Added 00:00: automati c 00 allluan fro marie request for surgery [id number] Procedures Procedure Date / Time Performed Performing Clinician Devic e OFFICE/OUTPATIENT VISIT EST 2020-04-14 08:15:00 BASIC METABOLIC PANEL 2020-03-31 09:24:00 Roger Shrestha CBC W/ AUTO DIFF 2020-03-31 09:24:00 Roger Shrestha XR CHEST PA AND LATERAL 2020-03-26 13:27:38 Jamal Dickerson BASIC METABOLIC PANEL 2020-03-26 11:31:00 Leah Kline LIPID PANEL 2020-03-26 11:31:00 Leah Kline MAGNESIUM 2020-03-26 11:31:00 Leah Kline PRO-BNP 2020-03-26 11:31:00 Leah Kline OFFICE/OUTPATIENT VISIT EST 2020-03-11 11:00:00 RADIOLOGIC EXAM SHOULDER 2 2019-12-30 00:00:00 VIEWS BASIC METABOLIC PANEL 2019-07-25 13:32:00 Kline, Leah Blue MAGNESIUM 2019-07-25 13:32:00 Kline, Leah Blue PRO-BNP 2019-07-25 13:32:00 Kline, Leah Blue BASIC METABOLIC PANEL 2019-04-24 18:49:00 Kline, Leah Blue MAGNESIUM 2019-04-24 18:49:00 Kline, Leah Blue PRO-BNP 2019-04-24 18:49:00 KlineLeah MRI, shoulder, w/o contrast 2019-03-22 00:00:00 OFFICE/OUTPATIENT VISIT EST 2019-03-20 13:45:00 REMOTE HEART FAILURE 2019-03-08 15:54:00 Kline, Leah Blue MONITORING REMOTE ICD AND S-ICD CHECK 2019-03-07 04:15:00 Jose Isabel (EVERY 90 DAYS) RADIOLOGIC EXAM SHOULDER 2 2019-01-25 00:00:00 VIEWS BASIC METABOLIC PANEL 2019-01-23 18:31:00 KlineLeah Blue MAGNESIUM 2019-01-23 18:31:00 Kline, Leah Blue PRO-BNP 2019-01-23 18:31:00 KlineLeah Blue OFFICE/OUTPATIENT VISIT NEW 2019-01-17 09:30:00 REMOTE HEART FAILURE 2019-01-11 11:41:00 Kline, Leah Blue MONITORING REMOTE HEART FAILURE 2018-12-10 14:36:00 Kline, Leah Blue MONITORING REMOTE ICD AND S-ICD CHECK 2018-12-06 04:15:00 Roger Shrestha (EVERY 90 DAYS) REMOTE HEART FAILURE 2018-09-07 08:21:00 Cheryl Alexander MONITORING PET MYOCARDIAL PERFUSION 2018-06-11 08:47:59 Glory Gómez BASIC METABOLIC PANEL 2018-06-11 05:29:00 Vazquez Sullivan MAGNESIUM 2018-06-11 05:29:00 Vazquez Sullivan CBC 2018-06-11 05:29:00 Vazquez Sullivan BASIC METABOLIC PANEL 2018-06-10 04:44:00 Vazquez Sullivan MAGNESIUM 2018-06-10 04:44:00 Vazquez Sullivan CBC 2018-06-10 04:44:00 Vazquez Sullivan TROPONIN I 2018-06-10 00:41:00 Vazquez Sullivan TROPONIN I 2018-06-09 21:42:00 Vazquez Sullivan COMPREHENSIVE METABOLIC PANEL 2018-06-09 13:06:00 Keily Alicea LIPID PANEL 2018-06-09 13:06:00 Vazquez Sullivan CBC W/ AUTO DIFF 2018-06-09 13:06:00 Andrey Alicea TROPONIN I 2018-06-09 13:06:00 Andrey Alicea PRO-BNP 2018-06-09 13:06:00 Andrey Alicea XR CHEST PORTABLE 2018-06-09 13:03:42 Andrey Alicea ECG 12-LEAD 2018-06-09 11:32:12 Andrey Alicea FLUORO (NO PROCEDURE) 2018-03-29 09:04:09 Liz Fonseca ECG 12-LEAD 2018-03-29 07:43:32 Narla, Roger Madai BASIC METABOLIC PANEL 2018-03-29 07:10:00 Narla, Roger Madai CBC 2018-03-29 07:10:00 Narla, Roger Madai XR CHEST PA AND LATERAL 2017-12-12 16:59:37 Narla, Roger Anupa ma Pacemaker/Defibrillator 2017-12-12 00:00:00 SPIROMETRY 2017-10-26 09:36:43 Merlin Mojica DIFFUSION STUDIES 2016-06-16 13:35:23 Pau Man FLOW VOLUME LOOPS PRE/POST 2016-06-16 13:35:23 Pau Man ancis Excision of Lipoma 2014-06-12 00:00:00 Results Test Description Test Time Test Comments Text Results Atomic Results Result Comments URIC ACID 2020-04-15 04:00:00 Test Item Value Reference Range Comments URIC ACID (test code = 3084-1) 5.9 mg/dL 4.0-8.0 T herapeutic target for gout patients: <6.0 m g/dL COMPREHENSIVE METABOLIC [id number] 04:00:00 Test Item Value Reference Range Comments GLUCOSE (test code = 83 mg/dL 65-99 Fasting ref erence interval 2345-7) UREA NITROGEN (BUN) 15 mg/dL 7-25 (test code = 3094-0) CREATININE (test code 1.07 mg/dL 0.70-1.25 For patien ts >49 years of = 2160-0) age, the referen ce limitfor Creatin ine is approximately 13 % higher for peopleidenti fied as -Chinese . eGFR NON-AFR. ZAMBIAN 73 mL/min/1.73m2 >=60 (test code = 03703-7) eGFR 85 mL/min/1.73m2 >=60 (test code = 24595-8) BUN/CREATININE RATIO NOT APPLICABLE (calc) 6-22 (test code = 3097-3) SODIUM (test code = 139 mmol/L 386-492 2383-2) POTASSIUM (test code = 4.3 mmol/L 3.5-5.3 2823-3) CHLORIDE (test code = 105 mmol/L 98-110 5-0) CARBON DIOXIDE (test 29 mmol/L 20-32 code = 2027-9) CALCIUM (test code = 8.9 mg/dL 8.6-10.3 50543-6) PROTEIN, TOTAL (test 6.9 g/dL 6.1-8.1 code = 2885-2) ALBUMIN (test code = 4.3 g/dL 3.6-5.1 1751-7) GLOBULIN (test code = 2.6 g/dL (calc) 1.9-3.7 87491-5) ALBUMIN/GLOBULIN RATIO 1.7 (calc) 1.0-2.5 (test code = 1759-0) BILIRUBIN, TOTAL (test 0.4 mg/dL 0.2-1.2 code = 1974-2) ALKALINE PHOSPHATASE 109 U/L 35-144 (test code = 6768-6) AST (test code = 23 U/L 10-35 1920-8) ALT (test code = 18 U/L 9-46 1742-6) URIC [id number] 09:00:005.9COMPREHENSIVE METABOLIC [id number] 09:00:00 Test Item Value Reference Range Comments eGFR (test code = 85 mL/min/1.73m2 > OR = 60 99125389) CREATININE (test code = 26767886) 1.07 mg/dL 0.70-1.25 ALBUMIN/GLOBULIN RATIO (test code = 1.7 (calc) 1.0-2.5 69040988) BUN/CREATININE RATIO (test code = NOT APPLICABLE (calc) 6-22 39351329) UREA NITROGEN (BUN) (test code = 15 mg/dL 7-25 55614532) GLOBULIN (test code = 92773898) 2.6 g/dL (calc) 1.9-3.7 CARBON DIOXIDE (test code = 22575196) 29 mmol/L 20-32 eGFR NON-AFR. ZAMBIAN (test code = 73 mL/min/1.73m2 > OR = 60 91233309) ALBUMIN (test code = 26720212) 4.3 g/dL 3.6-5.1 CALCIUM (test code = 61045880) 8.9 mg/dL 8.6-10.3 ALKALINE PHOSPHATASE (test code = 109 U/L 35-144 42330131) POTASSIUM (test code = 36793676) 4.3 mmol/L 3.5-5.3 GLUCOSE (test code = 47290913) 83 mg/dL 65-99 PROTEIN, TOTAL (test code = 12613767) 6.9 g/dL 6.1-8.1 BILIRUBIN, TOTAL (test code = 0.4 mg/dL 0.2-1.2 85863012) SODIUM (test code = 79472271) 139 mmol/L 135-146 AST (test code = 41586619) 23 U/L 10-35 CHLORIDE (test code = 75805748) 105 mmol/L 98-110 ALT (test code = 49554070) 18 U/L 9-46 Basic Metabolic Panel (03/31/2020 9:24 AM EDT)2020-03-31 09:24:00 Test Item Value Reference Range Comments Sodium (test code = Sodium) 140 mmol/L 135 - 145 mmol/L Potassium (test code = Potassium) 3.3 mmol/L 3.5 - 5.0 mmol /L Chloride (test code = Chloride) 104 mmol/L 98 - 107 mmol/L CO2 (test code = CO2) 31.0 mmol/L 22.0 - 30.0 mmol/L Anion Gap (test code = Anion Gap) 5 mmol/L 7 - 15 mmol/L BUN (test code = BUN) 19 mg/dL 7 - 21 mg/dL Creatinine (test code = Creatinine) 1.35 mg/dL 0.70 - 1.30 mg/dL BUN/Creatinine Ratio (test code = 14 BUN/Creatinine Ratio) EGFR CKD-EPI Non-, Male 55 mL/min/1.73m2 >=60 mL /min/1.73m2 (test code = EGFR CKD-EPI Non-, Male) EGFR CKD-EPI , Male 64 mL/min/1.73m2 >=60 mL/min /1.73m2 (test code = EGFR CKD-EPI , Male) Glucose (test code = Glucose) 101 mg/dL 70 - 99 mg/dL Calcium (test code = Calcium) 9.1 mg/dL 8.5 - 10.2 mg/dL CBC w/ Differential (03/31/2020 9:24 AM EDT)2020-03-31 09:24:00 Test Item Value Reference Range Comments WBC (test code = WBC) 4.6 10*9/L 4.5 - 11.0 10*9/L RBC (test code = RBC) 3.86 10*12/L 4.50 - 5.90 10*12/L HGB (test code = HGB) 11.5 g/dL 13.5 - 17.5 g/dL HCT (test code = HCT) 35.5 % 41.0 - 53.0 % MCV (test code = MCV) 92.0 fL 80.0 - 100.0 fL MCH (test code = MCH) 29.8 pg 26.0 - 34.0 pg MCHC (test code = MCHC) 32.4 g/dL 31.0 - 37.0 g/dL RDW (test code = RDW) 14.0 % 12.0 - 15.0 % MPV (test code = MPV) 9.5 fL 7.0 - 10.0 fL Platelet (test code = Platelet) 204 10*9/L 150 - 440 10*9/L Neutrophils % (test code = Neutrophils %) 43.9 % Lymphocytes % (test code = Lymphocytes %) 38.9 % Monocytes % (test code = Monocytes %) 9.4 % Eosinophils % (test code = Eosinophils %) 4.3 % Basophils % (test code = Basophils %) 0.5 % Absolute Neutrophils (test code = Absolute 2.0 10*9/L 2.0 - 7.5 10*9/L Neutrophils) Absolute Lymphocytes (test code = Absolute 1.8 10*9/L 1.5 - 5.0 10*9/L Lymphocytes) Absolute Monocytes (test code = Absolute 0.4 10*9/L 0.2 - 0 .8 10*9/L Monocytes) Absolute Eosinophils (test code = Absolute 0.2 10*9/L 0.0 - 0.4 10*9/L Eosinophils) Absolute Basophils (test code = Absolute 0.0 10*9/L 0.0 - 0 .1 10*9/L Basophils) Large Unstained Cells (test code = Large 3 % 0 - 4 % Unstained Cells) XR Chest 2 views (03/26/2020 1:27 PM EDT)2020-03-26 13:32:32XR Chest 2 views (03/26/2020 1:27 PM EDT)SpecimenImpressionsPerformed At No evidence of ICD lead fracture[place] [place] [place]NarrativePerformed AtEXAM: XR CHEST 2 VIEWSDATE: 03/26/2020 1:27 PMACCESSION: [id number]: 03/26/2020 1:32 PMINTERPRETATION LOCATION: [facility] CLINICAL INDICATION: 64 years oldMale with [employer] ; concern for LV lead fracture or movement ; OTHER - Z95.810 - Biventricular ICD (implantable cardioverter - defibrillator) in place COMPARISON: Portable chest radiograph on 06/09/2018 TECHNIQUE: PA and Lateral Chest Radiographs. FINDINGS: Left ICD with leads projecting over the right atrium and right ventricle and left ventricle. No evidence of lead fracture. No focal consolidations are identified. No pleural effusion or pneumothorax. Similar cardiomediastinal silhouette. [facility] [place]Procedure NoteInterface, Rad Results In - 03/26/2020 2:26 PM EDTEXAM: XR CHEST 2 VIEWS DATE: 03/26/2020 1:27 PM DICTATED: 03/26/2020 1:32 PM [facility]: 64 years [facility] Male with [employer] ; concern for LV lead fracture or movement ; OTHER - Z95.810 - Biventricular ICD (implantable cardioverter - defibrillator) in place COMPARISON: Portablechest radiograph on 06/09/2018 TECHNIQUE: PA and Lateral Chest Radiographs. FINDINGS: Left ICD with leads projecting over the right atrium and right ventricle and left ventricle. No evidence of lead fracture. No focal consolidations are identified. No pleural effusion or pneumothorax. Similar cardiomediastinal silhouette. IMPRESSION: No evidence of ICD lead fracture.Performing OrganizationAddressCity/State/ZIP CodePhone NumberC RADEMC [id number] [facility], [place] [address]Icdaalvlr Level (03/26/2020 11:31 AM EDT) 2020-03-26 11:31:00 Test Item Value Reference Range Comments Magnesium (test code = Magnesium) 1.8 mg/dL 1.6 - 2.2 mg/d L Lipid Panel (03/26/2020 11:31 AM EDT)2020-03-26 11:31:00 Test Item Value Reference Range Comments Triglycerides (test code = Triglycerides) 83 mg/dL 1 - 14 9 mg/dL Cholesterol (test code = Cholesterol) 98 mg/dL 100 - 199 mg/dL HDL (test code = HDL) 47 mg/dL 40 - 59 mg/dL LDL Calculated (test code = LDL Calculated) 34 mg/dL 60 - 99 mg/dL VLDL Cholesterol Esdras (test code = VLDL 16.6 mg/dL 12 - 42 m g/dL Cholesterol Esdras) Chol/HDL Ratio (test code = Chol/HDL Ratio) 2.1 <5.0 Non-HDL Cholesterol (test code = Non-HDL 51 mg/dL Cholesterol) FASTING (test code = FASTING) No Pro-BNP (03/26/2020 11:31 AM EDT)2020-03-26 11:31:00 Test Item Value Reference Range Comments PRO-BNP (test code = PRO-BNP) 59.7 pg/mL 0.0 - 177.0 pg/mL Basic Metabolic Panel (03/26/2020 11:31 AM EDT)2020-03-26 11:31:00 Test Item Value Reference Range Comments Sodium (test code = Sodium) 142 mmol/L 135 - 145 mmol/L Potassium (test code = Potassium) 3.8 mmol/L 3.5 - 5.0 mmol /L Chloride (test code = Chloride) 103 mmol/L 98 - 107 mmol/L CO2 (test code = CO2) 26.0 mmol/L 22.0 - 30.0 mmol/L Anion Gap (test code = Anion Gap) 13 mmol/L 7 - 15 mmol/L BUN (test code = BUN) 21 mg/dL 7 - 21 mg/dL Creatinine (test code = Creatinine) 1.42 mg/dL 0.70 - 1.30 mg/dL BUN/Creatinine Ratio (test code = 15 BUN/Creatinine Ratio) EGFR CKD-EPI Non-, Male 52 mL/min/1.73m2 >=60 mL /min/1.73m2 (test code = EGFR CKD-EPI Non-, Male) EGFR CKD-EPI , Male 60 mL/min/1.73m2 >=60 mL/min /1.73m2 (test code = EGFR CKD-EPI , Male) Glucose (test code = Glucose) 100 mg/dL 70 - 179 mg/dL Calcium (test code = Calcium) 9.1 mg/dL 8.5 - 10.2 mg/dL SED RATE BY MODIFIED [id number] 06:30:00 Test Item Value Reference Range Comments SED RATE BY MODIFIED WESTERGREN (test code = 4537-7) 19 mm/h <=20 CBC (INCLUDES DIFF/PLT)2020-03-12 06:30:00 Test Item Value Reference Range Comments WHITE BLOOD CELL COUNT (test code = 6690-2) 3.8 Thousand/uL 3.8- 10.8 RED BLOOD CELL COUNT (test code = 789-8) 3.69 Million/uL 4.20-5. 80 HEMOGLOBIN (test code = 718-7) 10.9 g/dL 13.2-17.1 HEMATOCRIT (test code = 4544-3) 33.0 % 38.5-50.0 MCV (test code = 787-2) 89.4 fL 80.0-100.0 MCH (test code = 785-6) 29.5 pg 27.0-33.0 MCHC (test code = 786-4) 33.0 g/dL 32.0-36.0 RDW (test code = 788-0) 12.8 % 11.0-15.0 PLATELET COUNT (test code = 777-3) 208 Thousand/uL 140-400 MPV (test code = 776-5) 11.2 fL 7.5-12.5 ABSOLUTE NEUTROPHILS (test code = 751-8) 2215 cells/uL 1500-78 00 ABSOLUTE LYMPHOCYTES (test code = 731-0) 1072 cells/uL 850-390 0 ABSOLUTE MONOCYTES (test code = 742-7) 327 cells/uL 200-950 ABSOLUTE EOSINOPHILS (test code = 711-2) 167 cells/uL 15-500 ABSOLUTE BASOPHILS (test code = 704-7) 19 cells/uL 0-200 NEUTROPHILS (test code = 770-8) 58.3 % LYMPHOCYTES (test code = 736-9) 28.2 % MONOCYTES (test code = 5905-5) 8.6 % EOSINOPHILS (test code = 713-8) 4.4 % BASOPHILS (test code = 706-2) 0.5 % C-REACTIVE [id number] 06:30:00 Test Item Value Reference Range Comments C-REACTIVE PROTEIN (test code = 1988-5) 7.1 mg/L <8.0 CHOLESTEROL, [id number] 06:30:00 Test Item Value Reference Range Comments CHOLESTEROL, TOTAL (test code = 2093-3) 112 mg/dL <200 HDL [id number] 06:30:00 Test Item Value Reference Range Comments HDL CHOLESTEROL (test code = 2085-9) 49 mg/dL >=40 [id number] 06:30:00 Test Item Value Reference Range Comments TRIGLYCERIDES (test code = 2571-8) 53 mg/dL <150 [id number] 06:30:00 Test Item Value Reference Range Comments LDL-CHOLESTEROL (test 50 mg/dL (calc) <=99 Reference range: <100Desirable code = 85020-2) range <100 mg/dL for primary prevention;<70 m g/dL for patients with CH D or diabetic patientswith > o r = 2 CHD risk factors.LDL-C is now calculated using the Clca lculation, which is a validated n ovel method providingbetter accuracy than the Friedewald e quation in theestimation of LDL-C.Luis A PAL et al. SINDY. 201 3;310(19): 5884-9076(http:/ /education.[employer].com/ faq/YWS973) CHOL/HDLC [id number] 06:30:00 Test Item Value Reference Range Comments CHOL/HDLC RATIO (test code = 9830-1) 2.3 (calc) <5.0 NON HDL [id number] 06:30:00 Test Item Value Reference Range Comments NON HDL CHOLESTEROL (test 63 mg/dL (calc) <130 For pa tients with diabetes code = 28911-7) plus 1 major ASC VD riskfactor, izzy ting to a non-HDL-C goal o f <100 mg/dL(LDL-C of < 70 mg/dL) is considered a therapeuticoptio n. URIC [id number] 06:30:00 Test Item Value Reference Range Comments URIC ACID (test code = 8.1 mg/dL 4.0-8.0 Therapeut ic target for gout 3084-1) patients: <6.0 m g/dL COMPREHENSIVE METABOLIC [id number] 06:30:00 Test Item Value Reference Range Comments GLUCOSE (test code = 122 mg/dL 65-99 Fasting ref erence 2345-7) intervalFor some one without known di abetes, a glucose valuebet ween 100 and 125 mg/dL is consistent withp rediabetes and should be co nfirmed with afollow-up test. UREA NITROGEN (BUN) 16 mg/dL 7-25 (test code = 3094-0) CREATININE (test code 1.17 mg/dL 0.70-1.25 For patien ts >49 years of = 0-0) age, the referen ce limitfor Creatin ine is approximately 13 % higher for peopleidenti fied as -Chinese . eGFR NON-AFR. ZAMBIAN 66 mL/min/1.73m2 >=60 (test code = 18755-2) eGFR 76 mL/min/1.73m2 >=60 (test code = 35617-6) BUN/CREATININE RATIO NOT APPLICABLE (calc) 6-22 (test code = 3097-3) SODIUM (test code = 141 mmol/L 717-804 1539-2) POTASSIUM (test code = 4.0 mmol/L 3.5-5.3 2823-3) CHLORIDE (test code = 105 mmol/L 98-110 5-0) CARBON DIOXIDE (test 29 mmol/L 20-32 code = 2027-9) CALCIUM (test code = 9.1 mg/dL 8.6-10.3 98266-0) PROTEIN, TOTAL (test 7.1 g/dL 6.1-8.1 code = 2885-2) ALBUMIN (test code = 4.2 g/dL 3.6-5.1 1751-7) GLOBULIN (test code = 2.9 g/dL (calc) 1.9-3.7 42017-7) ALBUMIN/GLOBULIN RATIO 1.4 (calc) 1.0-2.5 (test code = 1759-0) BILIRUBIN, TOTAL (test 0.5 mg/dL 0.2-1.2 code = 1974-) ALKALINE PHOSPHATASE 97 U/L 35-144 (test code = 6768-6) AST (test code = 18 U/L 10-35 1920-8) ALT (test code = 15 U/L 9-46 1742-6) COMPREHENSIVE METABOLIC [id number] 11:51:00 Test Item Value Reference Range Comments PROTEIN, TOTAL (test code = 24842639) 7.1 g/dL 6.1-8.1 SODIUM (test code = 76822100) 141 mmol/L 135-146 eGFR NON-AFR. ZAMBIAN (test code = 66 mL/min/1.73m2 > OR = 60 91231693) CARBON DIOXIDE (test code = 69514282) 29 mmol/L 20-32 AST (test code = 20756578) 18 U/L 10-35 BUN/CREATININE RATIO (test code = NOT APPLICABLE (calc) 6-22 18103009) ALBUMIN/GLOBULIN RATIO (test code = 1.4 (calc) 1.0-2.5 87475548) GLUCOSE (test code = 03798291) 122 mg/dL 65-99 ALKALINE PHOSPHATASE (test code = 97 U/L 35-144 53535505) eGFR (test code = 76 mL/min/1.73m2 > OR = 60 48650315) CREATININE (test code = 30145755) 1.17 mg/dL 0.70-1.25 UREA NITROGEN (BUN) (test code = 16 mg/dL 7-25 34945665) CALCIUM (test code = 48549210) 9.1 mg/dL 8.6-10.3 POTASSIUM (test code = 44949283) 4.0 mmol/L 3.5-5.3 BILIRUBIN, TOTAL (test code = 0.5 mg/dL 0.2-1.2 17740839) ALBUMIN (test code = 44556128) 4.2 g/dL 3.6-5.1 CHLORIDE (test code = 45180219) 105 mmol/L 98-110 GLOBULIN (test code = 14081921) 2.9 g/dL (calc) 1.9-3.7 ALT (test code = 78527125) 15 U/L 9-46 C-REACTIVE [id number] 11:51:007.1SED RATE BY MODIFIED LELAND 2020-03-11 11:51:574812BSIUQ PANEL, [id number] 11:51:00 Test Item Value Reference Range Comments CHOL/HDLC RATIO (test code = 72672549) 2.3 (calc) <5.0 NON HDL CHOLESTEROL (test code = 61519612) 6363 mg/dL (calc) <13 0 LDL-CHOLESTEROL (test code = 26789705) 50 mg/dL (calc) CHOLESTEROL, TOTAL (test code = 27722449) 112 mg/dL <200 HDL CHOLESTEROL (test code = 32998203) 49 mg/dL > OR = 40 TRIGLYCERIDES (test code = 89141900) 53 mg/dL <150 URIC [id number] 11:51:008.18.18.1CBC (INCLUDES DIFF/PLT)2020-03-11 11:51:00 Test Item Value Reference Range Comments HEMATOCRIT (test code = 31868767) 33.0 % 38.5-50.0 ABSOLUTE EOSINOPHILS (test code = 167 cells/uL 15-500 34014874) MCH (test code = 34384315) 29.5 pg 27.0-33.0 EOSINOPHILS (test code = 91028772) 4.4 % HEMOGLOBIN (test code = 88859914) 10.9 g/dL 13.2-17.1 ABSOLUTE NEUTROPHILS (test code = 2215 cells/uL 1853-3331 16160563) NEUTROPHILS (test code = 13759381) 58.3 % MCHC (test code = 86855216) 33.0 g/dL 32.0-36.0 MPV (test code = 09061179) 11.2 fL 7.5-12.5 ABSOLUTE BASOPHILS (test code = 19 cells/uL 0-200 31903656) PLATELET COUNT (test code = 55818154) 208 Thousand/uL 140-400 RDW (test code = 27015649) 12.8 % 11.0-15.0 RED BLOOD CELL COUNT (test code = 3.693.69 Million/uL 4.20-5.80 92300579) BASOPHILS (test code = 82451381) 0.5 % ABSOLUTE MONOCYTES (test code = 327 cells/uL 200-950 40308147) LYMPHOCYTES (test code = 40874912) 28.2 % MCV (test code = 64497034) 89.4 fL 80.0-100.0 WHITE BLOOD CELL COUNT (test code = 3.8 Thousand/uL 3.8-10.8 17019937) ABSOLUTE LYMPHOCYTES (test code = 1072 cells/uL 850-3900 81680148) MONOCYTES (test code = 69383451) 8.6 % #[id number] 13:32:00 Test Item Value Reference Range Comments PRO-BNP (test code = PRO-BNP) 90.4 pg/mL 0.0- 177.0 pg/mL #[id number] 13:32:00 Test Item Value Reference Range Comments Sodium (test code = Sodium) 141 mmol/L 135- 145 mmol/L Potassium (test code = Potassium) 3.7 mmol/L 3.5- 5.0 mmol/ L Chloride (test code = Chloride) 102 mmol/L 98- 107 mmol/L CO2 (test code = CO2) 28.0 mmol/L 22.0- 30.0 mmol/L Anion Gap (test code = Anion Gap) 11 mmol/L 7- 15 mmol/L BUN (test code = BUN) 18 mg/dL 7- 21 mg/dL Creatinine (test code = Creatinine) 1.20 mg/dL 0.70- 1.30 m g/dL BUN/Creatinine Ratio (test code = 15 BUN/Creatinine Ratio) EGFR CKD-EPI Non-, Male 64 mL/min/1.73m2 >=60 mL /min/1.73m2 (test code = EGFR CKD-EPI Non-, Male) EGFR CKD-EPI , Male 74 mL/min/1.73m2 >=60 mL/min /1.73m2 (test code = EGFR CKD-EPI , Male) Glucose (test code = Glucose) 84 mg/dL 70- 179 mg/dL Calcium (test code = Calcium) 9.3 mg/dL 8.5- 10.2 mg/dL #[id number] 13:32:00 Test Item Value Reference Range Comments Magnesium (test code = Magnesium) 1.9 mg/dL 1.6- 2.2 mg/dL #[id number] 13:49:00 Test Item Value Reference Range Comments PRO-BNP (test code = PRO-BNP) 62.3 pg/mL 0.0- 177.0 pg/mL #[id number] 13:49:00 Test Item Value Reference Range Comments Sodium (test code = Sodium) 141 mmol/L 135- 145 mmol/L Potassium (test code = Potassium) 4.0 mmol/L 3.5- 5.0 mmol/ L Chloride (test code = Chloride) 103 mmol/L 98- 107 mmol/L CO2 (test code = CO2) 30.0 mmol/L 22.0- 30.0 mmol/L Anion Gap (test code = Anion Gap) 8 mmol/L 7- 15 mmol/L BUN (test code = BUN) 17 mg/dL 7- 21 mg/dL Creatinine (test code = Creatinine) 1.25 mg/dL 0.70- 1.30 m g/dL BUN/Creatinine Ratio (test code = 14 BUN/Creatinine Ratio) EGFR CKD-EPI Non-, Male 61 mL/min/1.73m2 >=60 mL /min/1.73m2 (test code = EGFR CKD-EPI Non-, Male) EGFR CKD-EPI , Male 71 mL/min/1.73m2 >=60 mL/min /1.73m2 (test code = EGFR CKD-EPI , Male) Glucose (test code = Glucose) 85 mg/dL 65- 179 mg/dL Calcium (test code = Calcium) 9.4 mg/dL 8.5- 10.2 mg/dL #[id number] 13:49:00 Test Item Value Reference Range Comments Magnesium (test code = Magnesium) 1.9 mg/dL 1.6- 2.2 mg/dL PSA, [id number] 10:19:000.20.2COMPREHENSIVE METABOLIC [id number] 10:19:00 Test Item Value Reference Range Comments CHLORIDE (test code = 27745596) 102 mmol/L 98-110 ALKALINE PHOSPHATASE (test code = 123 U/L 40-115 11144865) CREATININE (test code = 19345191) 1.19 mg/dL 0.70-1.25 AST (test code = 02861470) 21 U/L 10-35 PROTEIN, TOTAL (test code = 73526942) 6.9 g/dL 6.1-8.1 CARBON DIOXIDE (test code = 76104904) 30 mmol/L 20-32 CALCIUM (test code = 01642227) 9.2 mg/dL 8.6-10.3 GLUCOSE (test code = 73697060) 92 mg/dL 65-99 BUN/CREATININE RATIO (test code = NOT APPLICABLE (calc) 6-22 84490595) SODIUM (test code = 05590716) 139 mmol/L 135-146 eGFR (test code = 75 mL/min/1.73m2 > OR = 60 70271969) POTASSIUM (test code = 55150458) 4.3 mmol/L 3.5-5.3 ALBUMIN/GLOBULIN RATIO (test code = 1.6 (calc) 1.0-2.5 21549593) ALT (test code = 90253987) 16 U/L 9-46 ALBUMIN (test code = 23217110) 4.2 g/dL 3.6-5.1 BILIRUBIN, TOTAL (test code = 0.6 mg/dL 0.2-1.2 74591278) eGFR NON-AFR. ZAMBIAN (test code = 6565 mL/min/1.73m2 > OR = 60 06900920) UREA NITROGEN (BUN) (test code = 1919 mg/dL 7-25 04348214) GLOBULIN (test code = 96037683) 2.7 g/dL (calc) 1.9-3.7 LIPID PANEL, [id number] 10:19:00 Test Item Value Reference Range Comments TRIGLYCERIDES (test code = 26749715) 56 mg/dL <150 CHOL/HDLC RATIO (test code = 32393532) 2.1 (calc) <5.0 NON HDL CHOLESTEROL (test code = 29492870) 53 mg/dL (calc) <130 LDL-CHOLESTEROL (test code = 16664717) 3939 mg/dL (calc) CHOLESTEROL, TOTAL (test code = 57752378) 390512 mg/dL <200 HDL CHOLESTEROL (test code = 82262853) 49 mg/dL >40 CBC (INCLUDES DIFF/PLT)2019-03-21 10:19:00 Test Item Value Reference Range Comments MCHC (test code = 04923963) 33.1 g/dL 32.0-36.0 MPV (test code = 26226288) 11.7 fL 7.5-12.5 ABSOLUTE EOSINOPHILS (test code = 30678634) 119 cells/uL 15-5 00 MCV (test code = 54151808) 89.1 fL 80.0-100.0 LYMPHOCYTES (test code = 74451348) 27.6 % PLATELET COUNT (test code = 39546221) 166 Thousand/uL 140-400 ABSOLUTE LYMPHOCYTES (test code = 62754531) 1132 cells/uL 850- 3900 NEUTROPHILS (test code = 04933161) 54.5 % ABSOLUTE NEUTROPHILS (test code = 18672145) 2235 cells/uL 1500 -7800 EOSINOPHILS (test code = 06528173) 2.9 % RDW (test code = 95169695) 13.1 % 11.0-15.0 BASOPHILS (test code = 39204361) 0.5 % ABSOLUTE BASOPHILS (test code = 77034657) 21 cells/uL 0-200 MONOCYTES (test code = 07806863) 14.5 % MCH (test code = 83083163) 29.5 pg 27.0-33.0 ABSOLUTE MONOCYTES (test code = 40676428) 595 cells/uL 200-95 0 WHITE BLOOD CELL COUNT (test code = 4.1 Thousand/uL 3.8-10.8 50319429) RED BLOOD CELL COUNT (test code = 79012401) 3.86 Million/uL 4.20 -5.80 HEMOGLOBIN (test code = 64127497) 11.4 g/dL 13.2-17.1 HEMATOCRIT (test code = 89499079) 34.4 % 38.5-50.0 #[id number] 00:00:00REMOTE ICD AND S-ICD CHECK (03/07/2019 12:15 AM EDT)NarrativePerformed Papi Georges RN 03/12/20194:42 PMREMOTE ICD AND S-ICD CHECKDate/Time: 03/07/2019 4:39 PMPerformed by: Gale Georges, RNAuthorized by: Jose Isabel MD Comments: Normal device function, Tested Lead measurements stable and within normal range, Adequate battery reserveNo significant new atrial or ventricular arrhythmias OTHERPerforming OrganizationAddressCity/State/ZipcodePhone NumberOTHER#[id number] 14:31:00 Test Item Value Reference Range Comments PRO-BNP (test code = PRO-BNP) 52.8 pg/mL 0.0- 177.0 pg/mL #[id number] 14:31:00 Test Item Value Reference Range Comments Sodium (test code = Sodium) 138 mmol/L 135- 145 mmol/L Potassium (test code = Potassium) 3.4 mmol/L 3.5- 5.0 mmol/ L Chloride (test code = Chloride) 101 mmol/L 98- 107 mmol/L CO2 (test code = CO2) 31.0 mmol/L 22.0- 30.0 mmol/L Anion Gap (test code = Anion Gap) 6 mmol/L 9- 15 mmol/L BUN (test code = BUN) 20 mg/dL 7- 21 mg/dL Creatinine (test code = Creatinine) 1.20 mg/dL 0.70- 1.30 m g/dL BUN/Creatinine Ratio (test code = 17 BUN/Creatinine Ratio) EGFR CKD-EPI Non-, Male 64 mL/min/1.73m2 >=60 mL /min/1.73m2 (test code = EGFR CKD-EPI Non-, Male) EGFR CKD-EPI , Male 74 mL/min/1.73m2 >=60 mL/min /1.73m2 (test code = EGFR CKD-EPI , Male) Glucose (test code = Glucose) 88 mg/dL 65- 179 mg/dL Calcium (test code = Calcium) 9.7 mg/dL 8.5- 10.2 mg/dL #[id number] 14:31:00 Test Item Value Reference Range Comments Magnesium (test code = Magnesium) 1.7 mg/dL 1.6- 2.2 mg/dL #[id number] 00:00:00REMOTE ICD AND S-ICD CHECK (12/06/2018 12:15 AM EDT)NarrativePerformed Eileen Batista RN 1:05 PMREMOTE ICD AND S-ICD CHECKDate/Time: 12/06/2018 1:01 PMPerformed by: Jos Batista RNAuthorized by: Roger Shrestha MD Comments: Normal device functionTested Lead measurements stable and within normal rangeOn EMG SVT events appear 1:1 Atrial Driven; fastest at 158 bpm for 1 minute and 14 seconds. OTHERProcedure Jos Marcial RN - 12/06/2018 12:15 AM EDTREMOTE ICD ANDS-ICD CHECK Date/Time: 12/06/2018 1:01 PM Performed by: Jos Batista RN Authorized by: Roger Shrestha MD Comments: Normal device function Tested Lead measurements stable and within normal range On EMG SVT events appear 1:1 Atrial Driven; fastest at 158 bpm for 1 minute and 14 seconds. 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 Rate: 50 Patient Dependent: NO DEVICE DETECTED EVENTS (8)SVT RECOMMENDATIONS -Continue home monitoring as ordered with yearly in person checks See PDF in Media file for full interrogationPerforming OrganizationAddressCity/State/ZipcodePhone NumberOTHERPET Myocardial Perfusion [id number] 08:24:20PET Myocardial Perfusion Multiple (06/11/2018 8:47 AM) Narrative Performed At [facility] Patient Demographics Patient Name:Milton GALLEGOS Age:62 years PatientID:[id number] lbs Sex:maleHeight:68 in Patient :1955Race: -------- Procedure Study Date:06/11/2018 Requested Procedure Description:PET MYOCARDIAL PERFUSION MULTIPLE Reason for Requested Procedure:CHEST PAIN Ordering Physician:GLORY GÓMEZ Indications Indications:Chest Pain, Coronary Risk Factors. Hypertension Known CAD: Cardiac History: Impression Low risk myocardial perfusionNo areas of high risk reversible ischemia.Low normal EF of 45-50%.Scan Significance: Low Risk Imaging Data Results Image Quality: Imaging Protocol:Stress/Rest Rb-82 EKG Data Pharmaceutical Stress Test Pharm Stress Agent: 0.4mg REGADENOSON Infusion Rate [g/kg/min]: Infusion Duration[minutes]: Heart Rate & BP Info:Rest Heart Rate [56bpm] Rest BP [127/65mm/Hg] Stress Heart Rate [99bpm] Stress BP [114/49mm/Hg] Reason for Termination:End of Protocol Chest Pain Symptoms: Stage Results StressRest Imaging Data Study Date: Pharmaceutical:[id number] Dose:30.3MCI30.2MCI Global LV Function: LVEF [%]:46%39% TID:0.93 EKG Findings Stress EKG DataRest EKG Data Test Status: Rhythm: IV Conduction: Arrythmias: Repolarisation: ST Response: AV Blocks: LV Findings LV Perfusion Summary: Stress LV Dilation: Coronary Findings Number of Diseased Vessels: Lesion 1Lesion 2Lesion 3 Location: Size: Severity: Vessel: Type: Reversibility: Signature Reading Physician: Dr. Mehdi Holm [id number] Signed - Findings The doyle imageS1 Snapshotis best illustrated by: Source:4DM The doyle imageS2 Snapshotis best illustrated by: Source:4DM The doyle imageS3 MFSCis best illustrated by: Source:4DM The doyle imageS4 MFSCis best illustrated by: Source:4DM This report has been digitally signed [facility] [place] [facility] Procedure Note Interface, Rad Results In - 06/11/2018 10:16 AM EST ----- [facility] ----- ----- Patient Demographics ----- Patient Name:Milton GALLEGOS Age:62 years lbs Sex:maleHeight:68 in Patient :1955Race: ----- Procedure ----- Study Date:06/11/2018 Requested Procedure Description:PET MYOCARDIAL PERFUSION MULTIPLE Reason for Requested Procedure:CHEST PAIN Ordering Physician:GLORY GÓMEZ ----- Indications ----- Indications:Chest Pain, Coronary Risk Factors. Hypertension Known CAD: Cardiac History: ----- Impression ----- Low risk myocardial perfusion No areas of high risk reversible ischemia. Low normal EF of 45-50%. Scan Significance: Low Risk ----- Imaging DataResults ----- Image Quality: Imaging Protocol:Stress/Rest Rb-82 ----- EKG Data ----- Pharmaceutical Stress Test Pharm Stress Agent: 0.4mg REGADENOSON Infusion Rate [g/kg/min]: Infusion Duration[minutes]: Heart Rate & BP Info:Rest Heart Rate [56bpm] Rest BP [127/65mm/Hg] Stress Heart Rate [99bpm] Stress BP [114/49mm/Hg] Reason for Termination:End of Protocol Chest Pain Symptoms: ----- StageResults ----- StressRest Imaging Data Study Date: Pharmaceutical:[id number]-82 Dose:30.3MCI30.2MCI Global LV Function: LVEF [%]:46%39% TID:0.93 ----- EKG Findings ----- Stress EKG DataRest EKG Data Test Status: Rhythm: IV Conduction: Arry thmias: Repolarisation: ST Response: AV Blocks: ----- LV Findings ----- LV Perfusion Summary: Stress LV Dilation: ----- Coronary Findings ----- Number of Diseased Vessels: Lesion 1Lesion 2Lesion 3Location: Size: Severity: Vessel: Type: Reversibility: ----- Signature ----- Reading Physician: Dr. Mehdi Holm [id number] Signed ----- Findings ----- The doyle image S1 Snapshot is best illustrated by: Source: 4DM The doyle image S2 Snapshot is best illustrated by: Source: 4DM The doyle image S3 MFSC is best illustrated by: Source: 4DM The doyle image S4 MFSC is best illustrated by: Source: 4DM This report has been digitally signed Performing Organization Address City/State/Zipcode Phone Number [facility] [id number] [facility]. [place], [place] [address]Uqflo Metabolic [id number] 05:29:00 Test Item Value Reference Range Comments Sodium (test code = Sodium) 137 mmol/L 134- 145 mmol/L Potassium (test code = Potassium) 3.7 mmol/L 3.5- 5.1 mmol/ L Chloride (test code = Chloride) 102 mmol/L 98- 107 mmol/L CO2 (test code = CO2) 27.0 mmol/L 21.0- 32.0 mmol/L BUN (test code = BUN) 33 mg/dL 7- 18 mg/dL Creatinine (test code = Creatinine) 1.64 mg/dL 0.70- 1.30 m g/dL BUN/Creatinine Ratio (test code = 20 BUN/Creatinine Ratio) EGFR MDRD Non Af Amer (test code = EGFR 43 mL/min/1.73m2 MDRD Non Af Amer) EGFR MDRD Af Amer (test code = EGFR MDRD 52 mL/min/1.73m2 Af Amer) Anion Gap (test code = Anion Gap) 8 mmol/L 3- 11 mmol/L Glucose (test code = Glucose) 100 mg/dL 65- 99 mg/dL Calcium (test code = Calcium) 8.0 mg/dL 8.5- 10.1 mg/dL [id number] 05:29:00 Test Item Value Reference Range Comments Magnesium (test code = Magnesium) 2.0 mg/dL 1.6- 2.6 mg/dL [id number] 05:29:00 Test Item Value Reference Range Comments WBC (test code = WBC) 5.3 10*9/L 3.5- 10.5 10*9/L RBC (test code = RBC) 3.79 10*12/L 4.32- 5.72 10*12/L HGB (test code = HGB) 11.5 g/dL 13.5- 17.5 g/dL HCT (test code = HCT) 33.3 % 38.0- 50.0 % MCV (test code = MCV) 87.9 fL 81.0- 95.0 fL MCH (test code = MCH) 30.4 pg 26.0- 34.0 pg MCHC (test code = MCHC) 34.6 g/dL 30.0- 36.0 g/dL RDW (test code = RDW) 13.3 % 12.0- 15.0 % MPV (test code = MPV) 9.5 fL 7.0- 10.0 fL Platelet (test code = Platelet) 164 10*9/L 150- 450 10*9/L Basic Metabolic [id number] 04:44:00 Test Item Value Reference Range Comments Sodium (test code = Sodium) 136 mmol/L 134- 145 mmol/L Potassium (test code = Potassium) 3.8 mmol/L 3.5- 5.1 mmol/ L Chloride (test code = Chloride) 98 mmol/L 98- 107 mmol/L CO2 (test code = CO2) 29.0 mmol/L 21.0- 32.0 mmol/L BUN (test code = BUN) 40 mg/dL 7- 18 mg/dL Creatinine (test code = Creatinine) 2.39 mg/dL 0.70- 1.30 m g/dL BUN/Creatinine Ratio (test code = 17 BUN/Creatinine Ratio) EGFR MDRD Non Af Amer (test code = EGFR 28 mL/min/1.73m2 MDRD Non Af Amer) EGFR MDRD Af Amer (test code = EGFR MDRD 34 mL/min/1.73m2 Af Amer) Anion Gap (test code = Anion Gap) 9 mmol/L 3- 11 mmol/L Glucose (test code = Glucose) 88 mg/dL 65- 99 mg/dL Calcium (test code = Calcium) 9.3 mg/dL 8.5- 10.1 mg/dL [id number] 04:44:00 Test Item Value Reference Range Comments Magnesium (test code = Magnesium) 2.3 mg/dL 1.6- 2.6 mg/dL [id number] 04:44:00 Test Item Value Reference Range Comments WBC (test code = WBC) 7.2 10*9/L 3.5- 10.5 10*9/L RBC (test code = RBC) 4.14 10*12/L 4.32- 5.72 10*12/L HGB (test code = HGB) 12.5 g/dL 13.5- 17.5 g/dL HCT (test code = HCT) 36.3 % 38.0- 50.0 % MCV (test code = MCV) 87.7 fL 81.0- 95.0 fL MCH (test code = MCH) 30.3 pg 26.0- 34.0 pg MCHC (test code = MCHC) 34.5 g/dL 30.0- 36.0 g/dL RDW (test code = RDW) 13.3 % 12.0- 15.0 % MPV (test code = MPV) 9.7 fL 7.0- 10.0 fL Platelet (test code = Platelet) 188 10*9/L 150- 450 10*9/L Troponin [id number] 00:41:00 Test Item Value Reference Range Comments Troponin I (test code = Troponin I) <0.015 <=0.045 ng/m L Troponin [id number] 21:42:00 Test Item Value Reference Range Comments Troponin I (test code = Troponin I) <0.015 <=0.045 ng/m L XR Chest [id number] 13:10:24XR Chest Portable (06/09/2018 1:03 PM) Impressions Performed At Lungs clear Signed (Electronic Signature): 06/09/2018 1:11 PM Signed By: Crissy Law MD [facility] [place] [facility] Narrative Performed At Exam:Portable Chest History:Chest pain Technique:Single frontal view. Comparison:None. Findings:The lungs are fully expanded and clear. Pacemaker wires are present over the mediastinum. There is no evidence of consolidation or edema. There is no evidence of a pneumothorax. No pleural effusions are present. The mediastinum is normal in size and contour. [facility] [place] [place] [facility] Procedure Note Interface, Rad Results In - 06/09/2018 1:13 PM EST Exam: Portable Chest History: Chest pain Technique: Single frontal view. Comparison: None. Findings: The lungs are fully expanded and clear. Pacemaker wires are present over the mediastinum. There is no evidence of consolidation or edema. There is no evidence of a pneumothorax. No pleural effusions are present. The mediastinum is normal in size and contour. IMPRESSION: Lungs clear Signed (Electronic Signature): 06/09/2018 1:11 PM Signed By: Crissy Law MD Performing O rganization Address City/State/Zipcode Phone Number [facility] [place] [address] [facility]. [place], [place] [address]Kbtblgnjvvgbl Metabolic [id number] 13:06:00 Test Item Value Reference Range Comments Sodium (test code = Sodium) 136 mmol/L 134- 145 mmol/L Potassium (test code = Potassium) 3.1 mmol/L 3.5- 5.1 mmol/ L Chloride (test code = Chloride) 102 mmol/L 98- 107 mmol/L CO2 (test code = CO2) 25.0 mmol/L 21.0- 32.0 mmol/L BUN (test code = BUN) 24 mg/dL 7- 18 mg/dL Creatinine (test code = Creatinine) 1.92 mg/dL 0.70- 1.30 m g/dL BUN/Creatinine Ratio (test code = 13 BUN/Creatinine Ratio) EGFR MDRD Non Af Amer (test code = EGFR 36 mL/min/1.73m2 MDRD Non Af Amer) EGFR MDRD Af Amer (test code = EGFR MDRD 43 mL/min/1.73m2 Af Amer) Anion Gap (test code = Anion Gap) 9 mmol/L 3- 11 mmol/L Glucose (test code = Glucose) 86 mg/dL 65- 99 mg/dL Calcium (test code = Calcium) 7.5 mg/dL 8.5- 10.1 mg/dL Albumin (test code = Albumin) 3.5 g/dL 3.4- 5.0 g/dL Total Protein (test code = Total Protein) 7.1 g/dL 6.4- 8 .2 g/dL Total Bilirubin (test code = Total 0.3 mg/dL 0.2- 1.0 mg/d L Bilirubin) AST (test code = AST) 18 U/L 15- 37 U/L ALT (test code = ALT) 23 U/L 16- 61 U/L Alkaline Phosphatase (test code = 102 U/L 45- 117 U/L Alkaline Phosphatase) [id number] 13:06:00 Test Item Value Reference Range Comments PRO-BNP (test code = PRO-BNP) 63.0 pg/mL 0.0- 125.0 pg/mL Troponin [id number] 13:06:00 Test Item Value Reference Range Comments Troponin I (test code = Troponin I) <0.015 <=0.045 ng/m L CBC w/ [id number] 13:06:00 Test Item Value Reference Range Comments WBC (test code = WBC) 7.7 10*9/L 3.5- 10.5 10*9/L RBC (test code = RBC) 4.36 10*12/L 4.32- 5.72 10*12/L HGB (test code = HGB) 13.0 g/dL 13.5- 17.5 g/dL HCT (test code = HCT) 38.7 % 38.0- 50.0 % MCV (test code = MCV) 88.8 fL 81.0- 95.0 fL MCH (test code = MCH) 29.8 pg 26.0- 34.0 pg MCHC (test code = MCHC) 33.6 g/dL 30.0- 36.0 g/dL RDW (test code = RDW) 13.3 % 12.0- 15.0 % MPV (test code = MPV) 10.0 fL 7.0- 10.0 fL Platelet (test code = Platelet) 215 10*9/L 150- 450 10*9/L Neutrophils % (test code = Neutrophils %) 67.7 % Lymphocytes % (test code = Lymphocytes %) 17.8 % Monocytes % (test code = Monocytes %) 12.9 % Eosinophils % (test code = Eosinophils %) 1.1 % Basophils % (test code = Basophils %) 0.5 % Absolute Neutrophils (test code = Absolute 5.2 10*9/L 1.7- 7.7 10*9/L Neutrophils) Absolute Lymphocytes (test code = Absolute 1.4 10*9/L 0.7- 4.0 10*9/L Lymphocytes) Absolute Monocytes (test code = Absolute 1.0 10*9/L 0.1- 1. 0 10*9/L Monocytes) Absolute Eosinophils (test code = Absolute 0.1 10*9/L 0.0- 0.7 10*9/L Eosinophils) Absolute Basophils (test code = Absolute 0.0 10*9/L 0.0- 0. 1 10*9/L Basophils) Lipid [id number] 13:06:00 Test Item Value Reference Range Comments Triglycerides (test code = Triglycerides) 88 mg/dL 49- 15 0 mg/dL Cholesterol (test code = Cholesterol) 101 mg/dL 120- 200 m g/dL HDL (test code = HDL) 42 mg/dL 40- 59 mg/dL LDL Calculated (test code = LDL Calculated) 41 mg/dL 40- 100 mg/dL VLDL Cholesterol Esdras (test code = VLDL 17.6 mg/dL 12- 42 mg /dL Cholesterol Esdras) Chol/HDL Ratio (test code = Chol/HDL Ratio) 2.4 1.0- 4.5 Non-HDL Cholesterol (test code = Non-HDL 59 mg/dL 70- 130 mg/dL Cholesterol) FASTING (test code = FASTING) Unknown ECG 12 [id number] 11:32:12 Test Item Value Reference Range Comments EKG Systolic BP (test code = EKG Systolic BP) EKG Diastolic BP (test code = EKG Diastolic BP) EKG Ventricular Rate (test code = EKG 77 BPM Ventricular Rate) EKG Atrial Rate (test code = EKG Atrial Rate) 77 BPM EKG P-R Interval (test code = EKG P-R Interval) 154 ms EKG QRS Duration (test code = EKG QRS Duration) 120 ms EKG Q-T Interval (test code = EKG Q-T Interval) 424 ms EKG QTC Calculation (test code = EKG QTC 479 ms Calculation) EKG Calculated P [place] (test code = EKG 66 degrees Calculated P [place]) EKG Calculated R [place] (test code = EKG -123 degrees Calculated R [place]) EKG Calculated T [place] (test code = EKG 36 degrees Calculated T [place]) ECG 12 [id number] 07:43:32 Test Item Value Reference Range Comments EKG Systolic BP (test code = EKG Systolic BP) EKG Diastolic BP (test code = EKG Diastolic BP) EKG Ventricular Rate (test code = EKG 64 BPM Ventricular Rate) EKG Atrial Rate (test code = EKG Atrial Rate) 64 BPM EKG P-R Interval (test code = EKG P-R Interval) 182 ms EKG QRS Duration (test code = EKG QRS Duration) 152 ms EKG Q-T Interval (test code = EKG Q-T Interval) 444 ms EKG QTC Calculation (test code = EKG QTC 458 ms Calculation) EKG Calculated P [place] (test code = EKG 55 degrees Calculated P [place]) EKG Calculated R [place] (test code = EKG -47 degrees Calculated R [place]) EKG Calculated T [place] (test code = EKG 63 degrees Calculated T [place]) [id number] 07:10:00 Test Item Value Reference Range Comments WBC (test code = WBC) 5.6 10*9/L 4.5- 11.0 10*9/L RBC (test code = RBC) 3.49 10*12/L 4.50- 5.90 10*12/L HGB (test code = HGB) 10.7 g/dL 13.5- 17.5 g/dL HCT (test code = HCT) 32.1 % 41.0- 53.0 % MCV (test code = MCV) 92.1 fL 80.0- 100.0 fL MCH (test code = MCH) 30.6 pg 26.0- 34.0 pg MCHC (test code = MCHC) 33.2 g/dL 31.0- 37.0 g/dL RDW (test code = RDW) 13.7 % 12.0- 15.0 % MPV (test code = MPV) 9.0 fL 7.0- 10.0 fL Platelet (test code = Platelet) 208 10*9/L 150- 440 10*9/L Basic Metabolic [id number] 07:10:00 Test Item Value Reference Range Comments Sodium (test code = Sodium) 139 mmol/L 135- 145 mmol/L Potassium (test code = Potassium) 4.0 mmol/L 3.5- 5.0 mmol/ L Chloride (test code = Chloride) 100 mmol/L 98- 107 mmol/L CO2 (test code = CO2) 28.0 mmol/L 22.0- 30.0 mmol/L BUN (test code = BUN) 35 mg/dL 7- 21 mg/dL Creatinine (test code = Creatinine) 1.66 mg/dL 0.70- 1.30 m g/dL BUN/Creatinine Ratio (test code = 21 BUN/Creatinine Ratio) EGFR MDRD Non Af Amer (test code = EGFR 42 mL/min/1.73m2 >=60 mL /min/1.73m2 MDRD Non Af Amer) EGFR MDRD Af Amer (test code = EGFR MDRD 51 mL/min/1.73m2 >=60 m L/min/1.73m2 Af Amer) Anion Gap (test code = Anion Gap) 11 mmol/L 9- 15 mmol/L Glucose (test code = Glucose) 96 mg/dL 65- 99 mg/dL Calcium (test code = Calcium) 9.5 mg/dL 8.5- 10.2 mg/dL XR Chest PA and [id number] 16:59:37XR Chest PA and Lateral (12/12/2017 4:59 PM) Specimen Performing Laboratory [facility] [place] [address] [facility] [place] [address] Impressions No pneumothorax Narrative EXAM: CHEST TWO VIEW DATE: 12/12/2017 4:59 PM DICTATED: 12/12/2017 7:42 PM INTERPRETATION LOCATION: [facility] [place] CLINICAL INDICATION: 62 years old Male with PNEUMOTHORAX--? COMPARISON: None TECHNIQUE: AP and lateral views of the chest. FINDINGS: Status post AICD with right atrial, right ventricular, and coronary sinus leads. Platelike atelectasis at the left lung base. Cardiomegaly. The lungs are otherwise clear without edema or pneumonia.. Procedure Note Interface, Rad Results In - 12/12/2017 7:45 PM EDT EXAM: CHEST TWOVIEW DATE: 12/12/2017 4:59 PM DICTATED: 12/12/2017 7:42 PM INTERPRETATION LOCATION: [facility] CLINICAL INDICATION: 62 years old Male with PNEUMOTHORAX-- COMPARISON: None TECHNIQUE: AP and lateral views of the chest. FINDINGS: Status post AICD with right atrial, right ventricular, and coronary sinus leads. Platelike atelectasis at the left lung base. Cardiomegaly. The lungs are otherwise clear without edema or pneumonia.. IMPRESSION: No pneumothoraxECG 12 [id number] 15:12:32 Test Item Value Reference Range Comments EKG Systolic BP (test code = EKG Systolic BP) EKG Diastolic BP (test code = EKG Diastolic BP) EKG Ventricular Rate (test code = EKG 82 BPM Ventricular Rate) EKG Atrial Rate (test code = EKG Atrial Rate) 82 BPM EKG P-R Interval (test code = EKG P-R Interval) 166 ms EKG QRS Duration (test code = EKG QRS Duration) 140 ms EKG Q-T Interval (test code = EKG Q-T Interval) 430 ms EKG QTC Calculation (test code = EKG QTC 502 ms Calculation) EKG Calculated P [place] (test code = EKG 51 degrees Calculated P [place]) EKG Calculated R [place] (test code = EKG 78 degrees Calculated R [place]) EKG Calculated T [place] (test code = EKG -50 degrees Calculated T [place]) [id number] 09:36:43 Test Item Value Reference Range Comments FEV1 PRE (test code = FEV1 PRE) 2.88 L 2.1165- 3.89838 L FEV1/FVC PRE (test code = FEV1/FVC PRE) 80.97 % 67.854- 88.688 % FVC PRE (test code = FVC PRE) 3.56 L 2.59721- 4.15595 L PEF PRE (test code = PEF PRE) 9.31 L/s 5.02551- 10.90489 L/s Vol extrap pre (test code = Vol extrap pre) 0.15 L FIVC PRE (test code = FIVC PRE) 0.02 L 2.19684- 4.32041 L FEV6 PRE (test code = FEV6 PRE) 3.47 L 2.57730- 4.75833 L FEV1/FEV6 PRE (test code = FEV1/FEV6 PRE) 83.16 % 71.149 - 90.873 % FEF50% PRE (test code = FEF50% PRE) 5.11 L/s HLM60-49% PRE (test code = UIC67-69% PRE) 3.21 L/s 1.0471 8- 4.70180 L/s VNPZFA37-01 PRE (test code = UYXVAC67-04 PRE) 3.21 L/s RLE138% Change (test code = BQC635% Change) 8.86 sec #[id number] 08:11:10 Test Item Value Reference Range Comments FEV1 POST (test code = 3.22 L 2.23488- 4.48862 L FEV1 POST) FEV1/FVC POST (test code = 81.41 % 66.1986- 85.5546 % FEV1/FVC POST) FVC POST (test code = FVC 3.95 L 3.82154- 5.55368 L POST) PEF POST (test code = PEF 7.91 L/s 6.44376- 11.32303 L/s POST) VOL extrap post (test code 0.26 L = VOL extrap post) FIVC POST (test code = 2.91 L 3.76318- 5.22989 L FIVC POST) PIF POST (test code = PIF 4.06 L/s 3.98704- 3.72637 L/s POST) FIF50% POST (test code = 3.56 L/s 2.6404- 6.8516 L/s FIF50% POST) FEV6 POST (test code = 3.89 L 3.32044- 5.47516 L FEV6 POST) FEV1/FEV6 POST (test code 82.69 % 70.2182- 88.1542 % = FEV1/FEV6 POST) FEF50% POST (test code = 5.66 L/s FEF50% POST) GBW53-55% POST (test code 3.41 L/s 1.338- 4.33582 L/s = AUF79-88% POST) FEF/FIF50 post (test code 158.92 % = FEF/FIF50 post) NMWOKS01-39 POST (test 3.52 L/s code = EICDSA81-40 POST) DES263% POST (test code = 7.67 sec IDH152% POST) FEV1 PRE (test code = FEV1 3.2 L 2.00965- 4.95490 L PRE) FEV1/FVC PRE (test code = 80.9 % 66.1986- 85.5546 % FEV1/FVC PRE) FVC PRE (test code = FVC 3.95 L 3.68120- 5.66388 L PRE) PEF PRE (test code = PEF 7.77 L/s 6.80633- 11.46811 L/s PRE) Vol extrap pre (test code 0.15 L = Vol extrap pre) FIVC PRE (test code = FIVC 2.03 L 3.29274- 5.51443 L PRE) PIF PRE (test code = PIF 5.07 L/s 3.94728- 3.13314 L/s PRE) FIF50% PRED (test code = 3.83 L/s 2.6404- 6.8516 L/s FIF50% PRED) FEV6 PRE (test code = FEV6 3.89 L 3.25734- 5.32593 L PRE) FEV1/FEV6 PRE (test code = 82.17 % 70.2182- 88.1542 % FEV1/FEV6 PRE) FEF50% PRE (test code = 5.4 L/s FEF50% PRE) KZT80-97% PRE (test code = 3.48 L/s 1.338- 4.56486 L/s KIM92-95% PRE) FEF/FIF50 pre (test code = 141.03 % FEF/FIF50 pre) ARPHXP87-70 PRE (test code 3.48 L/s = LDCYQY41-20 PRE) XXI530% Change (test code 7.32 sec = WJJ402% Change) DLCO PRE (test code = DLCO 15.82 ml/(min*mmHg) 19.16995838031- PRE) 35.40812275019 ml/(min*mmHg) BHT POST (test code = BHT 11.5 sec POST) DLCO/VA POST (test code = 2.87 ml/(min*mmHg*L) 3.399234032693554 5- DLCO/VA POST) 5.36509230940 ml/(min*mmHg*L) VA PRE (test code = VA 5.52 L 6.4344- 6.4344 L PRE) IVC PRE (test code = IVC 3.93 L 3.43047- 5.28036 L PRE) DL Adj PRE (test code = DL 15.82 ml/(min*mmHg) Adj PRE) DL/VA Adj PRE (test code = 2.87 ml/(min*mmHg*L) DL/VA Adj PRE) #[id number] 08:11:10 Test Item Value Reference Range Comments FEV1 POST (test code = 3.22 L 2.85287- 4.87863 L FEV1 POST) FEV1/FVC POST (test code = 81.41 % 66.1986- 85.5546 % FEV1/FVC POST) FVC POST (test code = FVC 3.95 L 3.31194- 5.36952 L POST) PEF POST (test code = PEF 7.91 L/s 6.89618- 11.34064 L/s POST) VOL extrap post (test code 0.26 L = VOL extrap post) FIVC POST (test code = 2.91 L 3.69946- 5.39146 L FIVC POST) PIF POST (test code = PIF 4.06 L/s 3.62743- 3.73228 L/s POST) FIF50% POST (test code = 3.56 L/s 2.6404- 6.8516 L/s FIF50% POST) FEV6 POST (test code = 3.89 L 3.87210- 5.31596 L FEV6 POST) FEV1/FEV6 POST (test code 82.69 % 70.2182- 88.1542 % = FEV1/FEV6 POST) FEF50% POST (test code = 5.66 L/s FEF50% POST) ZLE40-17% POST (test code 3.41 L/s 1.338- 4.05318 L/s = ULV63-54% POST) FEF/FIF50 post (test code 158.92 % = FEF/FIF50 post) UWTHLC34-10 POST (test 3.52 L/s code = SQMKAA60-00 POST) KIX972% POST (test code = 7.67 sec NPX773% POST) FEV1 PRE (test code = FEV1 3.2 L 2.93287- 4.77724 L PRE) FEV1/FVC PRE (test code = 80.9 % 66.1986- 85.5546 % FEV1/FVC PRE) FVC PRE (test code = FVC 3.95 L 3.86635- 5.97205 L PRE) PEF PRE (test code = PEF 7.77 L/s 6.33786- 11.36450 L/s PRE) Vol extrap pre (test code 0.15 L = Vol extrap pre) FIVC PRE (test code = FIVC 2.03 L 3.55763- 5.22461 L PRE) PIF PRE (test code = PIF 5.07 L/s 3.12633- 3.86026 L/s PRE) FIF50% PRED (test code = 3.83 L/s 2.6404- 6.8516 L/s FIF50% PRED) FEV6 PRE (test code = FEV6 3.89 L 3.69588- 5.93806 L PRE) FEV1/FEV6 PRE (test code = 82.17 % 70.2182- 88.1542 % FEV1/FEV6 PRE) FEF50% PRE (test code = 5.4 L/s FEF50% PRE) LFF05-93% PRE (test code = 3.48 L/s 1.338- 4.98222 L/s MXN92-74% PRE) FEF/FIF50 pre (test code = 141.03 % FEF/FIF50 pre) [id number] PRE (test code 3.48 L/s = [id number] PRE) JRA844% Change (test code 7.32 sec = DOE400% Change) DLCO PRE (test code = DLCO 15.82 ml/(min*mmHg) 19.75792429687- PRE) 35.59631481568 ml/(min*mmHg) BHT POST (test code = BHT 11.5 sec POST) DLCO/VA POST (test code = 2.87 ml/(min*mmHg*L) [id number] 5- DLCO/VA POST) 5.26131542396 ml/(min*mmHg*L) VA PRE (test code = VA 5.52 L 6.4344- 6.4344 L PRE) IVC PRE (test code = IVC 3.93 L 3.57586- 5.50005 L PRE) DL Adj PRE (test code = DL 15.82 ml/(min*mmHg) Adj PRE) DL/VA Adj PRE (test code = 2.87 ml/(min*mmHg*L) DL/VA Adj PRE) NM Myocardial Perfusion Spect [id number] 13:11:16IN Myocardial Perfusion Spect Multiple (01/04/2016 1:11 PM) Narrative Exam: NM MYOCARDIAL PERFUSION S PECT MULTIPLE (One-Day Rest/Stress Tc-99M Sestamibi (SPECT / CT) - Regadenoson) ++++++++++++++++++++++++++++++++++++++++++++ Impressions: - Low risk abnormal myocardial perfusion study - There is a small in size, mild in severity, partially reversible defect involving the apical and apical anterior segments. This is consistent with possible ischemia vs artifact. - Post stress: Global systolic function is mildly reduced. The ejection fraction calculated at 48%. - No significant coronary calcifications were noted on the attenuation CT. Partially visualized right renal mass, likely a cyst. ++++++++++++ ++++++++++++++++++++++++++++++++ Name: Bobby Gallegos (Male) Date of : 1955 (60) ID: [id number] Date of Procedure: 01/04/2016 Primary Attending: John Mcmillan Fellow: Elliot Forrester M.D. Clinical Indications: chest pain Cardiac Risk Factors: hypertension and hyperlipidemia Past Cardiac Procedures: none reported Medications: beta nena and statin Other Conditions: none reported Protocol: One-Day Rest/Stress Tc-99M Sestamibi (SPECT / CT) - Regadenoson The patient was brought to the SPECT / CT laboratory and underwent an attenuation CT scan. 10.7 mCi of Tc-99m sestamibi was administered intravenously. Approximately 15 minutes later, the patient had the resting images performed. The patient was given a 0.4 mg dose of regadenoson intravenously over 15 seconds. Afterthe IV administration of 32.4 mCi of Tc-99m sestamibi at peak exercise, stress tomographic images ofthe heart were obtained. A post stress attenuation CT was acquired. Motion Issues: none reported Atte nuation Issues: none reported Other Quality Issues: attenuation corrected Clinical Findings: Ht: 68 in (173 cm) Wt: 203 lb (92.1 kg) BSA: 2.06 m2 Exercise: No exercise is performed for this type of protocol. Baseline: HR = 58 BP = 158/105 Peak: HR = 94 BP = 123/66 Baseline EKG: sinus bradycardia and LBBB Baseline Arrhythmia: none reported Stress EKG: no significant changes over baseline Stress Arrhythmia: none reported Stress Symptoms: typical regadenoson symptoms Nuclear Perfusion Findings: There is a small in size, mild in severity, partially reversible defect involving the apical and apical anterior segments. This is consistent with possible ischemia vs artifact. Nuclear Wall Motion Findings: Post stress: Global systolic function is mildly reduced. The ejection fraction calculated at 48%. I (John Mcmillan) was available for the stress portion of the test. 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 Pain in right toe(s) Active Essential (primary) hypertension Active Subacromial bursitis of left shoulder Active 2020-02-20 15:06:46 Shoulder joint pain Active 2019-12-30 13:14:23 Subacromial bursitis of left shoulder Active 2019-12-30 13:36:27 Gout Active 2019-10-08 08:15:07 Gout Active 2019-08-20 13:23:19 Subacromial bursitis of left shoulder Active 2019-06-21 09:56:15 Subacromial bursitis of left shoulder Active 2019-03-22 09:19:01 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 Essential (primary) hypertension Active Hyperlipidemia, unspecified Active Obstructive sleep apnea (adult) Active (pediatric) Pain of left shoulder joint Active 2019-01-25 08:41:23 Subacromial bursitis of left shoulder Active 2019-01-25 12:34:16 Other cardiomyopathies Active Chronic systolic (congestive) heart Active failure Essential (primary) hypertension Active Hyperlipidemia, unspecified Active Encounters Start End Encounter Admission Attending Care Care Encounter Date/Time Date/Time Type Type Clinicians Facility Department ID 2020-07-10 2020-07-10 Outpatient EL [facility] [id number] 00:00:00 00:00:00 [id number] 2020-06-11 2020-06-11 Outpatient EL [facility] [id number]_ 00:00:00 00:00:00 [id number] 2020-05-22 2020-05-22 Outpatient EL JULIENNE, [facility] [id number]_ 00:00:00 00:00:00 MIRNELA [id number] 2020-04-14 2020-04-14 Outpatient Ness, [place] [id number] 08:15:00 08:15:00 Feli Children???s A5-4EFD-A DC and [id number] Multispecial 54D ty Clini 2020-04-08 2020-04-08 Outpatient EL [facility] [id number]_ 00:00:00 00:00:00 [id number] 2020-03-31 2020-03-31 Outpatient EL HENRIETTA, [facility] [id number]_ 08:52:00 11:38:00 ROGER [id number] 2020-03-31 2020-03-31 [facility] [id number] 08:52:00 11:38:00 2020-03-27 2020-03-27 Outpatient EL NARGUS, [facility] [id number]_ 00:00:00 00:00:00 ROGER [id number] 2020-03-27 2020-03-27 Outpatient [facility] [id number] 00:00:00 00:00:00 2020-03-27 2020-03-27 [facility] [id number] 00:00:00 00:00:00 2020-03-26 2020-03-26 Outpatient [facility]OILA [facility] [id number]_ 13:14:49 23:59:00 JAMAL [id number] 2020-03-26 2020-03-26 [facility] [id number] 13:14:49 23:59:00 2020-03-26 2020-03-26 Outpatient EL [facility] [id number]_ 10:43:50 12:39:26 [id number] 2020-03-26 2020-03-26 Outpatient [facility] [id number] 10:43:50 12:39:26 2020-03-26 2020-03-26 Outpatient [facility] [id number] 10:42:42 12:38:42 2020-03-26 2020-03-26 Outpatient EL [facility] [id number]_ 10:42:42 12:38:42 [id number] 2020-03-26 2020-03-26 Outpatient ZOILA CLINTON [facility] [id number] 00:00:00 00:00:00 JAMAL [id number] 2020-03-20 2020-03-20 Outpatient [facility] [id number] 08:06:16 08:21:16 2020-03-20 2020-03-20 Outpatient EL [facility] [id number]_ 08:06:16 08:08:29 [id number] 2020-03-20 2020-03-20 Outpatient EL [facility] [id number]_ 00:00:00 00:00:00 [id number] 2020-03-11 2020-03-11 Outpatient Bundle, [facility] [place] [id number] 11:00:00 11:00:00 Feli Children 4D-5P82-0D5 s [id number] and B62 Multispecial ty Clinic, 2020-03-05 2020-03-05 Outpatient EL [facility] [id number]_ 08:08:38 11:24:36 [id number] 2020-03-05 2020-03-05 Outpatient [facility] [id number] 08:08:38 08:23:38 2020-03-05 2020-03-05 Outpatient EL [facility] [id number]_ 00:00:00 00:00:00 [id number] 2020-03-05 Outpatient [facility] [id number] 00:00:00 00:00:00 2020-02-21 2020-02-21 Nando Catarino Rm [id number] 00:00:00 00:00:00 Wertman, Surgical Surgical 0911 DO: [address] [facility], [address] [address], Ph. 2020-01-27 2020-01-27 Outpatient EL [facility] [id number]_ 10:06:27 11:26:14 [id number] 2020-01-27 2020-01-27 [facility] [id number] 10:06:27 10:21:27 2020-01-21 2020-01-21 Outpatient [facility] [id number] 00:00:00 00:00:00 2019-12-30 2019-12-30 Nando Russo [id number] 00:00:00 00:00:00 Wertman, Surgical Surgical 0720 DO: [address] [facility], [address] [address], Ph. 2019-12-05 2019-12-05 Outpatient EL [facility] [id number]_ 09:56:24 14:02:08 [id number] 2019-12-05 2019-12-05 Outpatient [facility] [id number] 09:56:24 10:11:24 2019-12-05 2019-12-05 Outpatient EL [facility] [id number]_ 00:00:00 00:00:00 [id number] 2019-11-18 Outpatient EL [facility] [id number]_ 08:14:08 11:10:12 [id number] 2019-11-18 2019-11-18 Outpatient [facility] [id number] 08:14:08 08:29:08 2019-11-18 2019-11-18 Outpatient EL [facility] [id number]_ 00:00:00 00:00:00 [id number] 2019-11-15 Outpatient EL [facility] [id number]_ 08:01:07 09:01:39 [id number] 2019-11-15 2019-11-15 Outpatient [facility] [id number] 08:01:07 09:01:39 2019-11-15 2019-11-15 Outpatient EL [facility] [id number]_ 00:00:00 00:00:00 [id number] 2019-11-07 Outpatient [facility] [id number] 00:00:00 00:00:00 2019-10-17 2019-10-17 Outpatient EL [facility] [id number]_ 08:13:30 11:14:02 [id number] 2019-10-17 2019-10-17 Out[facility] [id number] 08:13:30 08:28:30 2019-10-17 2019-10-17 Outpatient EL [facility] [id number]_ 00:00:00 00:00:00 [id number] 2019-10-08 Marv Rm [id number] 00:00:00 00:00:00 Castro [facility] 0428 MD [facility] [address] [place] [address], [address], [place] [address], Ph. 2019-09-17 2019-09-17 [facility] [id number] 00:00:00 00:00:00 2019-09-16 2019-09-16 Outpatient [facility] [id number] 07:50:52 08:05:52 2019-09-16 2019-09-16 Outpatient [facility] [id number]_ 07:50:52 07:59:28 [id number] 2019-09-16 2019-09-16 Outpatient [facility] [id number]_ 00:00:00 00:00:00 [id number] 2019-09-05 Outpatient EL [facility] [id number]_ 12:28:39 14:22:16 [id number] 2019-09-05 2019-09-05 Outpatient [facility] [id number] 12:28:39 12:43:39 2019-09-05 2019-09-05 Outpatient EL [facility] [id number]_ 00:00:00 00:00:00 [id number] 2019-08-23 Outpatient [facility] [id number] 00:00:00 00:00:00 2019-08-20 2019-08-20 Marv Rm [id number] 00:00:00 00:00:00 [facility] 0310 MD Dorina[facility] [address] [facility], [address], [place] [address], Ph. 2019-08-16 2019-08-16 Outpatient EL [facility] [id number]_ 09:52:23 10:28:37 [id number] 2019-08-16 2019-08-16 Outpatient [facility] [id number] 09:52:23 10:07:23 2019-08-16 2019-08-16 Outpatient EL [facility] [id number]_ 00:00:00 00:00:00 [id number] 2019-08-02 2019-08-02 Outpatient EL [facility] [id number]_ 00:00:00 00:00:00 [id number] 2019-07-26 2019-07-26 Outpatient EL [facility] [id number]_ 00:00:00 00:00:00 [id number] 2019-07-25 2019-07-25 Outpatient EL [facility] [id number]_ 10:35:17 13:34:08 [id number] 2019-07-25 2019-07-25 Outpatient [facility] [id number] 10:35:17 13:34:08 2019-07-25 2019-07-25 Outpatient EL [facility] [id number]_ 10:34:55 13:06:41 [id number] 2019-07-25 2019-07-25 Outpatient [facility] [id number] 10:34:55 13:06:41 2019-07-25 2019-07-25 Outpatient EL [facility] [id number]_ 00:00:00 00:00:00 [id number] 2019-07-12 2019-07-12 Outpatient [facility] [id number] 09:56:12 10:11:12 2019-07-12 2019-07-12 Outpatient EL [facility] [id number]_ 09:56:12 10:05:50 [id number] 2019-06-27 2019-06-27 Outpatient [facility] [id number] 00:00:00 00:00:00 2019-06-21 2019-06-21 Nando Russo [id number] 00:00:00 00:00:00 Violet, Surgical Surgical 0110 DO: [address] [facility], [address], [place] [address], Ph. 2019-06-06 2019-06-07 Outpatient EL [facility] [id number]_ 12:33:08 10:32:17 [id number] 2019-06-07 2019-06-07 Outpatient [facility] [id number] 08:24:40 08:39:40 2019-06-07 2019-06-07 Outpatient EL [facility] [id number]_ 08:24:40 08:26:59 [id number] 2019-06-07 2019-06-07 Outpatient [facility] [id number]_ 00:00:00 00:00:00 [id number] 2019-06-06 Outpatient [facility] [id number] 12:33:08 12:48:08 2019-06-06 2019-06-06 Outpatient [facility] [id number]_ 00:00:00 00:00:00 [id number] 2019-05-03 Outpatient [facility] [id number]_ 12:07:29 12:10:26 [id number] 2019-05-03 2019-05-03 Outpatient [facility] [id number] 12:07:29 12:10:26 2019-05-03 2019-05-03 Outpatient EL [facility] [id number]_ 00:00:00 00:00:00 [id number] 2019-04-24 Outpatient EL KLINE, [facility] [id number]_ 11:50:30 23:59:00 VERONA [id number] 2019-04-24 2019-04-24 Outpatient [facility] [id number] 11:50:00 23:59:00 2019-04-24 2019-04-24 Outpatient EL [facility] [id number]_ 11:51:34 13:59:06 [id number] 2019-04-24 2019-04-24 Outpatient [facility] [id number] 11:51:34 13:59:06 2019-04-24 2019-04-24 Outpatient EL DONATO, [facility] [id number]_ 00:00:00 00:00:00 VERONA [id number] 2019-04-24 Outpatient YOUSIF KLINE, [facility] [id number]_ 00:00:00 00:00:00 VERONA [id number] 2019-03-22 Nando Russo [id number]_ [id number] 00:00:00 00:00:00 Violet, Surgical Surgical 1011 DO: [address] [facility], [address], [place] [address], Ph. 2019-03-20 2019-03-20 Outpatient Bundle, [address] [id number] 13:45:00 13:45:00 Feli Children???s 04-4917-8 84 and [id number] Multispecial C11 ty Clini 2019-03-08 2019-03-11 Outpatient EL [facility] [id number]_ 16:28:59 11:54:58 [id number] 2019-03-08 2019-03-08 Outpatient [facility] [id number] 16:28:59 16:43:59 2019-03-08 2019-03-08 Outpatient [facility] [id number] 10:24:47 11:24:47 2019-03-08 2019-03-07 Outpatient EL [facility] [id number]_ 10:24:47 23:59:00 [id number] 2019-03-07 2019-03-07 Outpatient EL [facility] [id number]_ 00:00:00 00:00:00 [id number] 2019-01-25 2019-01-25 Nando Annaeret [id number]_ [id number] 00:00:00 00:00:00 Violet, Surgical Surgical 0816 DO: [address] [facility], [address], [place] [address], Ph. 2019-01-23 2019-01-23 Outpatient EL [facility] [id number]_ 11:46:01 14:54:49 [id number] 2019-01-23 2019-01-23 Outpatient [facility] [id number] 11:46:01 14:54:49 2019-01-23 2019-01-23 Outpatient EL [facility] [id number]_ 00:00:00 00:00:00 [id number] 2019-01-23 Outpatient EL [facility] [id number]_ 00:00:00 00:00:00 [id number] 2019-01-17 Outpatient [facility], [facility] 32 [id number] 09:30:00 09:30:00 Feli Children???s 92-410A-A 37 and [id number] Multispecial 12C ty Clini 2019-01-15 2019-01-15 Outpatient [facility] [id number] 00:00:00 00:00:00 2019-01-11 2019-01-11 Outpatient [facility] [id number] 07:40:12 07:55:12 2019-01-11 2019-01-11 Outpatient EL [facility] [id number]_ 07:40:12 07:42:22 [id number] 2018-12-24 2018-12-24 Outpatient [facility] [id number] 00:00:00 00:00:00 2018-12-19 2018-12-19 Outpatient [facility] [id number] 00:00:00 00:00:00 2018-12-19 2018-12-19 Outpatient [facility] [id number] 00:00:00 00:00:00 2018-12-17 2018-12-17 Outpatient EL [facility] [id number]_ 00:00:00 00:00:00 [id number] 2018-12-17 Outpatient [facility] [id number] 00:00:00 00:00:00 2018-12-12 2018-12-12 Outpatient [facility] [id number] 00:00:00 00:00:00 2018-12-11 2018-12-11 Outpatient [facility] [id number] 00:00:00 00:00:00 2018-12-10 2018-12-10 Outpatient [facility] [id number] 08:44:38 08:59:38 2018-12-10 2018-12-07 Outpatient EL [facility] [id number]_ 08:44:38 23:59:00 [id number] 2018-12-07 2018-12-07 Outpatient EL [facility] [id number]_ 00:00:00 00:00:00 [id number] 2018-12-06 Outpatient EL [facility] [id number]_ 09:19:42 13:05:46 [id number] 2018-12-06 2018-12-06 Outpatient [facility] [id number] 09:19:42 10:19:42 2018-12-06 2018-12-06 Outpatient [facility] [id number] 00:00:00 00:00:00 2018-12-03 2018-12-03 Outpatient [facility] [id number] 00:00:00 00:00:00 2018-12-03 2018-12-03 Outpatient [facility] [id number] 00:00:00 00:00:00 2018-11-28 2018-11-28 Outpatient [facility] [id number] 00:00:00 00:00:00 2018-11-21 2018-11-21 Outpatient [facility] [id number] 00:00:00 00:00:00 2018-11-20 2018-11-20 Outpatient EL [facility] [id number]_ 00:00:00 00:00:00 [id number] 2018-10-16 Outpatient [facility] [id number] 00:00:00 00:00:00 2018-09-21 2018-09-21 Outpatient [facility] [id number] 00:00:00 00:00:00 2018-09-20 2018-09-20 Outpatient EL [facility] [id number]_ 10:32:09 11:51:34 [id number] 2018-09-20 2018-09-20 Outpatient [facility] [id number] 10:32:09 11:51:34 2018-09-20 2018-09-20 Outpatient EL [facility] [id number]_ 00:00:00 00:00:00 [id number] 2018-09-07 Outpatient [facility] [id number] 08:20:44 09:15:00 2018-09-07 2018-09-07 Outpatient EL [facility] [id number]_ 08:20:44 08:24:49 [id number] 2018-09-06 2018-09-06 Outpatient EL [facility] [id number]_ 13:21:15 13:29:01 [id number] 2018-09-06 2018-09-06 Outpatient [facility] [id number] 13:21:15 13:29:01 2018-09-06 2018-09-06 Outpatient EL [facility] [id number]_ 00:00:00 00:00:00 [id number] 2018-08-22 Outpatient [facility] [id number] 00:00:00 00:00:00 2018-08-13 2018-08-13 Outpatient [facility] [id number] 00:00:00 00:00:00 2018-06-11 2018-06-11 B EL [facility] [id number] _ 07:56:20 23:59:00 [id number] 2018-06-11 2018-06-11 B [facility] [id number] _ 07:56:16 23:59:00 [id number] 2018-06-09 2018-06-11 B ER ARABELLA, [facility] [id number] _ 11:31:36 15:45:00 GADIEL [id number] 2018-06-09 2018-06-11 Emergency [facility] [id number] 11:31:36 15:45:00 2018-06-09 2018-06-09 Emergency [facility] [id number]_ 12:56:19 23:59:00 [id number] 2018-06-09 2018-06-09 Emergency ER [facility] [id number]_ 11:30:00 11:30:00 [id number] 2018-06-07 2018-06-07 Outpatient EL [facility] [id number]_ 00:00:00 00:00:00 [id number] 2018-05-23 Outpatient EL [facility] [id number]_ 10:53:10 12:14:01 [id number] 2018-05-23 2018-05-23 Outpatient EL [facility] [id number]_ 00:00:00 00:00:00 [id number] 2018-05-23 Outpatient [facility] [id number] 00:00:00 00:00:00 2018-05-08 2018-05-08 Outpatient [facility] [id number] 00:00:00 00:00:00 2018-04-06 2018-04-06 Outpatient [facility] [id number] 00:00:00 00:00:00 2018-04-05 2018-04-05 Outpatient EL [facility] [id number]_ 00:00:00 00:00:00 [id number] 2018-04-05 2018-04-05 Outpatient [facility] [id number] 00:00:00 00:00:00 2018-04-05 2018-04-05 Outpatient [facility] [id number] 00:00:00 00:00:00 2018-04-05 2018-04-05 Outpatient [facility] [id number] 00:00:00 00:00:00 2018-04-04 2018-04-04 Outpatient [facility] [id number] 00:00:00 00:00:00 2018-04-04 2018-04-04 Outpatient [facility] [id number] 00:00:00 00:00:00 2018-04-04 2018-04-04 Outpatient [facility] [id number] 00:00:00 00:00:00 2018-04-03 2018-04-03 InPatient [facility] [id number] 09:11:11 09:11:11 2018-03-29 2018-03-29 X EL HENRIETTA, [facility] [id number] _ 06:06:00 09:12:00 ROGER [id number] 2018-03-29 2018-03-29 Outpatient [facility] [id number] 06:06:00 09:12:00 2018-03-27 2018-03-27 Outpatient [facility] [id number] 00:00:00 00:00:00 2018-03-27 2018-03-27 Outpatient [facility] [id number] 00:00:00 00:00:00 2018-03-21 2018-03-21 Outpatient EL [facility] [id number]_ 07:54:45 09:18:36 [id number] 2018-03-21 2018-03-21 Outpatient EL [facility] [id number]_ 00:00:00 00:00:00 [id number] 2018-03-13 2018-03-13 Outpatient EL [facility] [id number]_ 00:00:00 23:59:00 [id number] 2018-03-12 2018-03-12 Outpatient EL [facility] [id number]_ 00:00:00 00:00:00 [id number] 2018-03-02 Outpatient EL [facility] [id number]_ 00:00:00 23:59:00 [id number] 2017-12-29 2017-12-29 Outpatient [facility] [id number] 00:00:00 00:00:00 2017-12-29 2017-12-29 Outpatient [facility] [id number] 00:00:00 00:00:00 2017-12-22 2017-12-22 Outpatient EL [facility] [id number]_ 08:18:54 12:27:19 [id number] 2017-12-22 2017-12-22 Outpatient [facility] [id number] 08:18:54 09:30:00 2017-12-22 2017-12-22 Outpatient EL [facility] [id number]_ 00:00:00 00:00:00 [id number] 2017-12-22 Outpatient EL [facility] [id number]_ 00:00:00 00:00:00 [id number] 2017-12-12 X EL JULIENNE, [facility] [id number] _ 08:11:56 23:59:00 LESLIE [id number] 2017-12-12 2017-12-12 X EL [facility] [id number] _ 16:48:12 16:48:12 [id number] 2017-12-12 2017-12-12 X EL NARLA, [facility] [id number] _ 08:09:00 12:29:00 ROGER [id number] 2017-12-12 2017-12-12 Outpatient [facility] [id number] 08:09:00 12:29:00 2017-12-12 2017-12-12 X NARLA, [facility] [id number] _ 11:00:00 11:00:00 ROGER [id number] 2017-12-12 2017-12-12 X NARLA, [facility] [id number] _ 09:30:00 09:30:00 ROGER [id number] 000 2017-12-12 2017-12-12 X NARLA, [facility] [id number] _ 08:00:00 08:00:00 ROGER [id number] 2017-12-08 2017-12-08 Outpatient EL [facility] [id number]_ 00:00:00 00:00:00 [id number] 2017-11-13 2017-11-13 Outpatient [facility] [id number] 00:00:00 00:00:00 2017-11-13 2017-11-13 Outpatient [facility] [id number] 00:00:00 00:00:00 2017-11-10 2017-11-10 Outpatient [facility] [id number] 00:00:00 00:00:00 2017-11-03 2017-11-03 Outpatient EL [facility] [id number]_ 07:44:59 12:08:02 [id number] 2017-11-03 2017-11-03 Outpatient EL [facility] [id number]_ 00:00:00 00:00:00 [id number] 2017-10-26 Outpatient EL PROVIDER, [facility] [id number]_ 08:31:14 23:59:00 NOT [id number] 2017-10-26 2017-10-26 Outpatient [facility] [id number] 08:30:00 23:59:00 2017-10-26 2017-10-26 Outpatient EL [facility] [id number]_ 00:00:00 00:00:00 [id number] 2016-06-16 Outpatient [facility] [id number] 07:41:17 23:59:00 2016-06-16 2016-06-16 Outpatient EL [facility] [id number]_ 07:42:11 11:48:30 [id number] 2016-06-16 2016-06-16 Outpatient EL DONOVAN, [facility] [id number]_ 07:41:17 07:41:17 PAU [id number] 2016-06-16 2016-06-16 Outpatient EL [facility] [id number]_ 00:00:00 00:00:00 [id number] 2016-01-04 Outpatient [facility] [id number]_ 08:52:33 23:59:00 [id number] 2016-01-04 2016-01-04 Outpatient [facility] [id number] 08:52:33 23:59:00 2016-01-04 2016-01-04 Outpatient [facility] [id number]_ 08:51:23 23:59:00 [id number] 2016-01-04 2016-01-04 Outpatient [facility] [id number] 08:51:23 23:59:00 2016-01-04 2016-01-04 Outpatient [facility] [id number]_ 08:50:41 23:59:00 [id number] 2016-01-04 2016-01-04 Outpatient [facility] [id number] 08:50:41 23:59:00 2016-01-04 2016-01-04 Outpatient [facility] [id number] 08:49:45 23:59:00 [id number] 2016-01-04 2016-01-04 Outpatient [facility] [id number] 08:49:45 23:59:00 2016-01-04 2016-01-04 Outpatient [facility] [id number]_ 00:00:00 00:00:00 [id number] 2015-10-12 Outpatient [facility] [id number] 08:01:50 13:14:11 [id number] 2015-10-12 2015-10-12 Outpatient [facility] [id number]_ 00:00:00 00:00:00 [id number] Immunizations Ordered Immunization Filled Immunization Date Status Commen ts Refusal Reason Name Name Influenza Vaccine 2020-03-12 Completed Quad (IIV4 00:00:00 PF)36MO-Adult influenza, 2019-03-20 Completed injectable, 00:00:00 quadrivalent Influenza Vaccine 2019-02-18 Completed Quad (IIV4 PF) 6mo+ 00:00:00 injectable Payers Payer Name Policy Type Policy Number Effective Date Expiration D ate MEDICAID [place] [id number] 2018 00:00:00 ACCESS DEPARTMENT OF PUBLIC [id number] 2018 00:00:00 [place] [id number] 2015 00:00:00 SAFETY Plan of Treatment Planned Activity Planned Date Details Comments Future Scheduled Test [code = ] Future Scheduled Test [code = ] Future Scheduled Test [code = ] Future Scheduled Test [code = ] Future Scheduled Test [code = ] Future Scheduled Test [code = ] Future Scheduled Test [code = ] Future Scheduled Test [code = ] Future Scheduled Test [code = ] Future Scheduled Test [code = ] Future Scheduled Test [code = ] Future Scheduled Test [code = ] Future Scheduled Test [code = ] Future Scheduled Test [code = ] Future Scheduled Test [code = ] Future Scheduled Test [code = ] Future Scheduled Test [code = ] Future Scheduled Test [code = ] Future Scheduled Test [code = ] Future Scheduled Test [code = ] Future Scheduled Test [code = ] Future Scheduled Test [code = ] Future Scheduled Test [code = ] Future Scheduled Test [code = ] Future Scheduled Test [code = ] Future Scheduled Test [code = ] Future Scheduled Test [code = ] Future Scheduled Test [code = ] Future Scheduled Test [code = ] Future Scheduled Test [code = ] Future Scheduled Test [code = ] Future Scheduled Test [code = ] Future Scheduled Test [code = ] Future Scheduled Test [code = ] Social History Social Habit Start Date Stop Date Comments Sex Assigned At Tobacco smoking status NHIS 2020-03-31 00:00:00 2020-03-31 00:00 :00 Cigarettes smoked current (pack per 2020-03-31 00:00:00 00:00:00 day) - Reported Cigarette pack-years 2020-03-31 00:00:00 2020-03-31 00:00:00 Alcohol intake 2020-03-31 00:00:00 2020-03-31 00:00:00 Tobacco use and exposure 2020-03-31 00:00:00 2020-03-31 00:00:00 ASSERTION 2015-10-13 00:00:00 2015-10-13 00:00:00 History of tobacco use 1991-06-16 00:00:00 Smoking Status Start Date Stop Date Former Smoker Vital Signs Vital Name Observation Time Observation Value Comments Height 2020-02-21 00:00:00 68 [in_i] BMI (Body Mass Index) 2020-02-21 00:00:00 30.3 kg/m2 Body Weight 2020-02-21 00:00:00 199 [lb_av] BMI (Body Mass Index) 2019-12-30 00:00:00 30.3 kg/m2 Body Weight 2019-12-30 00:00:00 199 [lb_av] Height 2019-12-30 00:00:00 68 [in_i] Height 2019-10-08 00:00:00 68 [in_i] BP Diastolic 2019-08-20 00:00:00 82 mm[Hg] Height 2019-08-20 00:00:00 68 [in_i] BMI (Body Mass Index) 2019-08-20 00:00:00 30.3 kg/m2 BP Systolic 2019-08-20 00:00:00 132 mm[Hg] Body Weight 2019-08-20 00:00:00 199 [lb_av] BP Diastolic 2019-06-21 00:00:00 58 mm[Hg] Height 2019-06-21 00:00:00 68 [in_i] BMI (Body Mass Index) 2019-06-21 00:00:00 30.3 kg/m2 BP Systolic 2019-06-21 00:00:00 102 mm[Hg] Body Weight 2019-06-21 00:00:00 199 [lb_av] BP Diastolic 2019-03-22 00:00:00 74 mm[Hg] Height 2019-03-22 00:00:00 68 [in_i] BMI (Body Mass Index) 2019-03-22 00:00:00 30.3 kg/m2 BP Systolic 2019-03-22 00:00:00 91 mm[Hg] Body Weight 2019-03-22 00:00:00 199 [lb_av] Height 2019-01-25 00:00:00 68 [in_i] BMI (Body Mass Index) 2019-01-25 00:00:00 30.3 kg/m2 Body Weight 2019-01-25 00:00:00 199 [lb_av] Systolic blood pressure 2020-03-31 10:15:00 150 mm[Hg] Diastolic blood pressure 2020-03-31 10:15:00 76 mm[Hg] Heart rate 2020-03-31 10:15:00 50 /min Respiratory rate 2020-03-31 10:15:00 16 /min Oxygen saturation in Arterial blood by 2020-03-31 10:15:00 100 % Pulse oximetry Body temperature 2020-03-31 09:43:00 36.72 Micaela Body height 2020-03-31 09:33:00 172.7 cm Body weight 2020-03-31 09:33:00 92.987 kg Systolic blood pressure 2020-03-26 11:45:00 100 mm[Hg] Diastolic blood pressure 2020-03-26 11:45:00 54 mm[Hg] Heart rate 2020-03-26 11:45:00 49 /min Body temperature 2020-03-26 11:45:00 35.61 Micaela Body height 2020-03-26 11:45:00 172.7 cm Body weight 2020-03-26 11:45:00 93.35 kg Oxygen saturation in Arterial blood by 2020-03-26 11:45:00 99 % Pulse oximetry Systolic blood pressure 2020-03-26 10:53:00 100 mm[Hg] Diastolic blood pressure 2020-03-26 10:53:00 54 mm[Hg] Heart rate 2020-03-26 10:53:00 49 /min Body temperature 2020-03-26 10:53:00 35.61 Micaela Body height 2020-03-26 10:53:00 172.7 cm Body weight 2020-03-26 10:53:00 93.214 kg Oxygen saturation in Arterial blood by 2020-03-26 10:53:00 99 % Pulse oximetry Systolic blood pressure 2019-11-15 08:12:00 100 mm[Hg] Diastolic blood pressure 2019-11-15 08:12:00 54 mm[Hg] Heart rate 2019-11-15 08:05:00 51 /min Body temperature 2019-11-15 08:05:00 36.72 Micaela Body height 2019-11-15 08:05:00 172.7 cm Body weight 2019-11-15 08:05:00 92.67 kg Oxygen saturation in Arterial blood by 2019-11-15 08:05:00 96 % Pulse oximetry Systolic blood pressure 2019-07-25 11:39:00 138 mm[Hg] Diastolic blood pressure 2019-07-25 11:39:00 64 mm[Hg] Heart rate 2019-07-25 11:39:00 54 /min Body height 2019-07-25 11:39:00 172.7 cm Body weight 2019-07-25 11:39:00 94.121 kg Oxygen saturation in Arterial blood by 2019-07-25 11:39:00 97 % Pulse oximetry Systolic blood pressure 2019-04-24 12:58:00 120 mm[Hg] Diastolic blood pressure 2019-04-24 12:58:00 72 mm[Hg] Heart rate 2019-04-24 12:58:00 62 /min Body height 2019-04-24 12:58:00 172.7 cm Body weight 2019-04-24 12:58:00 92.987 kg Oxygen saturation in Arterial blood by 2019-04-24 12:58:00 98 % Pulse oximetry Systolic blood pressure 2019-01-23 13:22:00 120 mm[Hg] Diastolic blood pressure 2019-01-23 13:22:00 70 mm[Hg] Heart rate 2019-01-23 13:22:00 70 /min Body height 2019-01-23 13:22:00 172.7 cm Body weight 2019-01-23 13:22:00 91.989 kg Oxygen saturation in Arterial blood by 2019-01-23 13:22:00 98 % Pulse oximetry Systolic blood pressure 2018-09-20 10:41:00 132 mm[Hg] Diastolic blood pressure 2018-09-20 10:41:00 76 mm[Hg] Heart rate 2018-09-20 10:41:00 63 /min Body height 2018-09-20 10:41:00 172.7 cm Body weight 2018-09-20 10:41:00 93.713 kg Oxygen saturation in Arterial blood by 2018-09-20 10:41:00 93 % Pulse oximetry SYSTOLIC BLOOD PRESSURE 2018-06-11 11:13:00 121 mm[Hg] DIASTOLIC BLOOD PRESSURE 2018-06-11 11:13:00 67 mm[Hg] HEART RATE 2018-06-11 11:13:00 69 /min BODY TEMPERATURE 2018-06-11 11:13:00 36.61 Micaela RESPIRATORY RATE 2018-06-11 11:13:00 20 /min OXYGEN SATURATION 2018-06-11 11:13:00 100 % WEIGHT 2018-06-11 06:00:00 88 kg HEIGHT 2018-06-09 11:45:00 172.7 cm SYSTOLIC BLOOD PRESSURE 2018-03-29 06:56:00 129 mm[Hg] DIASTOLIC BLOOD PRESSURE 2018-03-29 06:56:00 70 mm[Hg] HEART RATE 2018-03-29 06:56:00 57 /min BODY TEMPERATURE 2018-03-29 06:56:00 36.61 Micaela RESPIRATORY RATE 2018-03-29 06:56:00 18 /min OXYGEN SATURATION 2018-03-29 06:56:00 100 % HEIGHT 2018-03-29 06:54:00 172.7 cm WEIGHT 2018-03-29 06:54:00 95.255 kg SYSTOLIC BLOOD PRESSURE 2017-12-22 08:36:00 112 mm[Hg] DIASTOLIC BLOOD PRESSURE 2017-12-22 08:36:00 81 mm[Hg] HEART RATE 2017-12-22 08:36:00 61 /min HEIGHT 2017-12-22 08:36:00 175.3 cm WEIGHT 2017-12-22 08:36:00 96.163 kg OXYGEN SATURATION 2017-12-22 08:36:00 97 % SYSTOLIC BLOOD PRESSURE 2017-12-12 16:00:00 108 mm[Hg] DIASTOLIC BLOOD PRESSURE 2017-12-12 16:00:00 62 mm[Hg] HEART RATE 2017-12-12 16:00:00 82 /min OXYGEN SATURATION 2017-12-12 16:00:00 96 % RESPIRATORY RATE 2017-12-12 15:00:00 20 /min BODY TEMPERATURE 2017-12-12 09:33:00 35.72 Micaela HEIGHT 2017-12-12 09:28:00 172.7 cm WEIGHT 2017-12-12 09:28:00 100.699 kg SYSTOLIC BLOOD PRESSURE 2016-01-04 11:51:00 125 mm[Hg] DIASTOLIC BLOOD PRESSURE 2016-01-04 11:51:00 66 mm[Hg] HEART RATE 2016-01-04 11:51:00 68 /min RESPIRATORY RATE 2016-01-04 11:51:00 18 /min OXYGEN SATURATION 2016-01-04 11:51:00 100 % Hospital Discharge Instructions 1. Subacromial bursitis of left shoulder Discussion Note: None recorded. Patient educational handouts: No information available.1. Shoulder joint pain XR, shoulder 2. Subacromial bursitis of left shoulder Discussion Note: None recorded. Patient educational handouts: No information available.1. Gout indomethacin 25 mg capsule Discussion Note: None recorded. Patient educational handouts:No information available.1. Gout indomethacin ER 75 mg capsule,extended release Discussion Note: None recorded. Patient educational handouts: No information available.1. Subacromial bursitis of left shoulder Discussion Note: None recorded. Patient educational handouts: No information available.1. Subacromial bursitis of left shoulder MRI, shoulder, w/o contrast Discussion Note: None recorded. Patient educational handouts: No information available.1. Pain of left shoulder joint XR, shoulder 2. Subacromial bursitis of left shoulder Discussion Note: None recorded. Patient educational handouts: No information available.
== END 2020-04-22 05:54 | disposition home or self-care (01) ==
LOC: ER 21:10
DX: S09.90XA Unspecified injury of head, initial encounter (principal); M54.2 Cervicalgia; W11.XXXA Fall on and from ladder, initial encounter; Y93.89 Activity, other specified; H55.00 Unspecified nystagmus; I25.10 Atherosclerotic heart disease of native coronary artery without angina pectoris; I10 Essential (primary) hypertension; Z79.82 Long term (current) use of aspirin; Z87.891 Personal history of nicotine dependence; Z95.810 Presence of automatic (implantable) cardiac defibrillator
CPT/HCPCS: 99284; 70450; 70486; 72125; J3490